=== PATIENT | male | born 1955 | race Caucasian/White ===

== ENCOUNTER 2024-03-21 10:49 | Emergency (ER) | payer OTHER, SELFPAY ==
[2024-03-21 11:22] VITALS: BP 163/85
--- NOTE | 2024-03-21 15:58 | ED.GENMED ---
History of Present Illness
General
Chief Complaint: Skin Problem
Time Seen by Provider: 03/21/24 15:39
Travel History
Have you had any contact with someone who has COVID-19?: No
Do you have any symptoms of coronavirus? Fever > 100 degrees, chills, cough, shortness of breath, sore throat, loss of taste or smell, muscle aches, or headache?: No
History of Present Illness
History of Present Illness:
68-year-old male presents for evaluation of an wound to the left posterior lower leg that was first discovered approximate 3 days ago. Has been using Neosporin without relief. Reports moderate increased pain to the area and redness that is new
over the past few days. Does have known venous stasis dermatitis. No fevers or chills
Past History
Past History
ED Past Medical History: CAD, HTN and Hypercholesterolemia
ED Past Surgical History: Cardiac and Tonsilectomy
Social History
Tobacco: Former smoker
Alcohol: None
Personal: Other
Living: with family
Family History
Family History: Unable to obtain
Review of Systems
Review of Systems
Allergies reviewed?: Yes
All Other Systems: ROS reviewed and negative except as documented in HPI and ROS
Phy Exam
Physical Exam
Physical Exam:
GEN: Well appearing, NAD, WDWN
HEENT: Oral mucosa moist, no scleral icterus
Cardiac: Regular rate
Lung: No respiratory distress, no tachypnea
MSK: No gross deformity or injuries, venous stasis dermatitis bilaterally
Skin: Good color, no pallor or jaundice, no rashes. 1.5 cm superficial abrasion with necrotic overlying tissue and copious debris, there is a 0.5 cm wound above this of a similar quality. Mild circumferential erythema and tenderness
Neuro: AO x3, moves all extremities freely
Psych: Calm, cooperative
Course
Vital Signs
Initial and Last Documented VS:
Initial Vital Signs
Temp Pulse Resp BP Pulse Ox
98.1 F 75 18 163/85 97
03/21/24 11:22 03/21/24 11:22 03/21/24 11:22 03/21/24 11:22 03/21/24 11:22
Last Documented Vital Signs
Temp Pulse Resp BP Pulse Ox
98.2 F 72 16 146/78 96
03/21/24 16:15 03/21/24 16:15 03/21/24 16:15 03/21/24 16:15 03/21/24 16:15
MDM/Problems Addressed
MDM/Problems Addressed:
Patient with a superficial wound, quite contaminated with dog hair and other debris. Wound was irrigated and the superficial necrotic tissue was debrided. Minimal erythema surrounding the wound, given the patient's poor hygiene will cover with
prophylactic antibiotics, discussed home wound care and will recommend outpatient wound care specialty follow-up
*Critical Care Note
Total Time (30-74mins, 75-104mins- exclusive of procedures): Not Applicable
ED Attending Note
-
Portions of this chart may have been created with voice recognition software.� Occasional wrong word or��sound alike� substitutions may have occurred due to the inherent limitations of voice recognition software.
Discharge Plan
Departure
Patient Disposition: Home (Routine Discharge)
Date of Disposition: 03/21/24
Time of Disposition: 16:02
Patient with high blood pressure during this ER visit?: Yes
Discharge Problem:
Leg wound, left
Instructions: Wound Care (DC)
Prescriptions:
New
cephalexin 500 mg capsule
500 mg PO Q8H 5 Days Qty: 15 0RF
No Action
tramadol 50 MG tablet
50 mg PO DAILY
losartan 25 MG tablet
25 mg PO DAILY
Eliquis 5 MG tablet
5 mg PO BID
atorvastatin 80 MG tablet
80 mg PO DAILY
metoprolol succinate 25 MG tablet extended release 24 hr
25 mg PO BID
Amiodarone Hcl 200 MG Tablet
200 mg PO DAILY
furosemide 40 MG tablet
40 mg PO DAILY
Referrals:
Ike Ulrich MD [Active] - Call in 1-3 days for appt
Activity Restrictions/Additional Instructions:
Clean wound each day with soap and water
After cleaning, apply the vaseline bandages I have provided you. Leave these on for 1 day each. After you run out of bandages, switch to regular bandaids
KEEP THE WOUND CLEAN
Take the antibiotics for 5 days
Follow up in the wound care clinic as listed
Interventions
Interventions:
*Risk Screen - Suicide Last Done: 03/21/24 11:22
*Neglect/Abuse Screening Last Done: 03/21/24 11:22
*ED COVID-19 Vaccine History Last Done: 03/21/24 11:22
*Nursing Disposition Last Done: 03/21/24 16:15
ED-Skin Assessment Last Done: 03/21/24 16:14
Discharge Date and Time
Discharge Date/Time: 03/21/24 16:15
Print Language: GEORGIAN
[2024-03-21 16:15] VITALS: BP 146/78
== END 2024-03-21 16:15 | disposition home or self-care (01) ==
LOC: EMR 10:49
PROVIDERS: EMERGENCY PHYSICIAN Emergency Medicine
DX: S81.802A Unspecified open wound, left lower leg, initial encounter (principal); X58.XXXA Exposure to other specified factors, initial encounter; I25.10 Atherosclerotic heart disease of native coronary artery without angina pectoris; I10 Essential (primary) hypertension; E78.00 Pure hypercholesterolemia, unspecified; I87.2 Venous insufficiency (chronic) (peripheral); Z87.891 Personal history of nicotine dependence; Z79.01 Long term (current) use of anticoagulants
CPT/HCPCS: 99283; 97597

== ENCOUNTER → 2024-05-21 12:52 | Outpatient (REF) | payer OTHER, SELFPAY ==
--- NOTE | 2024-05-21 13:35 | CARDSERVLU ---
Echocardiogram with Lumason completed after protocol screening completed. Allergies verified.
Patent IV site: ___RT AC__
IV site flushed with 0.9% NaCl pre and post administration.
Diluted bolus method utilized to enhance visualization of ventricular peraza.
Total volume given: __4.5__ mL
Patient tolerated all procedures well without complications.
# 22 milagros placed Rt AC. Lumason given. INT d/c'd. dsg applied and pressure held. No bleeding noted.
== END ==
LOC: RCS 12:52
PROVIDERS: ATTENDING PHYSICIAN Internal Medicine Interventional Cardiology; FAMILY PHYSICIAN Nurse Practitioner
DX: I25.5 Ischemic cardiomyopathy (principal)
CPT/HCPCS: 93306; Q9950

== ENCOUNTER 2024-10-12 13:59 | Inpatient (IN) | payer OTHER, SELFPAY ==
[2024-10-12] VITALS (13 sets, daily range): BP systolic 120–157; BP diastolic 60–76; PULSE 84; BMI 43.0; BMI 47.6
--- NOTE | 2024-10-12 08:48 | ED.GENMED ---
History of Present Illness
General
Chief Complaint: Breathing Problem
Source: patient
Exam Limitations: none
Time Seen by Provider: 10/12/24 08:48
History of Present Illness
History of Present Illness:
68-year-old male started with URI symptoms, wheezing 2 to 3 days ago. Shortness of breath became much worse this morning. Some cough. No pleuritic pain. No chest pain. Symptoms are moderate in nature.
Past History
Past History
ED Past Medical History: Arrthythmia, CAD, HTN and Hypercholesterolemia
ED Past Surgical History: Cardiac and Tonsilectomy
Social History
Tobacco: Former smoker
Alcohol: None
Personal: Other
Living: with family
Family History
Family History: Unable to obtain
Review of Systems
Review of Systems
All Other Systems: Not applicable
Constitutional: Denies chills
Respiratory: Reports cough; Denies hemoptysis
Cardiac: Denies chest pain or syncope
Phy Exam
Physical Exam
Physical Exam:
GENERAL: Alert and oriented. Mild tachypnea at rest
EYE: Orbits normal.
NECK: Supple, no significant adenopathy.
ENT: Pharynx without erythema
CARDIAC: Regular rate and rhythm without any obvious murmurs.
LUNGS: Mild tachypnea. Coarse cough at times. Expiratory wheezing and rhonchi diffusely
ABDOMEN: Soft, without focal tenderness or distention. Elevated BMI
NEUROLOGICAL: Alert and oriented , grossly non-focal
SKIN: Warm and dry, no rash or lesion, no discoloration, skin intact.
MUSCULOSKELETAL: No edema,no deformity.Good color
PSYCH: Normal and appropriate interaction.
Scores
Heart Failure Risk
Heart Failure Risk Score: Yes
History of Stroke or TIA: No
History of intubation for respiratory distress: No
Heart rate on ED arrival >/= 110: Yes
SaO2 <90% on arrival on room air: Yes
HR >/=110 during 3min walk test (or too ill to perform test): Yes
ECG has acute ischemic changes: No
Urea >/=12mmol/L (BUN 33.6mg/dL): No
Serum CO2>/=35mmol/L: No
Troponin I or T elevated to [place] Level (0.4mg/dL): No
NT-proBNP >/=5,000ng/L (5,000pg/ml): No
HF Risk Score: 3
Admission Status: HIGH RISK 15.9% Consider SNF treatment or admission to hospital
Course
Orders/Labs/Results
Orders:
Orders
10/12/24 08:44
EKG [Electrocardiogram (*1)] Urgent
Reason for Study: Shortness of Breath
EKG- Treatment ONCE
10/12/24 08:52
COVID-19 Antigen Urgent
Source: Nasal Swab
Influenza A+B Rapid Molecular Urgent
MARISA Source: Nasal Swab
Specimen Description:
10/12/24 08:54
Cardiac Monitoring- Treatment ONCE
IV Insert/Care/Rem.- Treatment PRN
Dexamethasone Sod Phosphate [Decadron] 8 mg IV NOW STA
Ipratropium/Albuterol Sulfate [Duoneb] 3 ml INH R NOW STA
CR Chest Portable - 1 View Urgent
Comment:
Reason For Exam: sob/hypoxia
Reason Study Needs to be Portable: Patient Unstable
O2 Therapy [RESP] Stat
Titrate/Wean O2 to maintain O2 sat greater than (%): 95
Pulse Ox/cont/shift [RESP] Stat
Quantity: 1
10/12/24 08:59
Basic Metabolic Panel Urgent
Complete Blood Count/With Diff Urgent
Pro-BNP [NT-proBNP] Urgent
Troponin I Urgent
10/12/24 10:42
Furosemide [Lasix] 40 mg IV NOW STA
10/12/24 13:34
Admit/Transfer Patient As Directed
Co-Sign Provider:
Level of Care: Inpatient admission
Assign to:: Telemetry
Physician / Group: Amanda/hospitalist
Diagnosis: SOB
Reason for Telemetry: Arrhythmia
Date to Stop Telemetry: 10/15/24
Time to Stop Telemetry: 11:00
Reason for Hospitalization: SOB
Expected length of stay greater than two midnights?: Yes
ELOS- Estimated Length of Stay in days: 4
I certify the patient meets the requirements for IP care: Yes
PRN Pain Medication Management As Directed
May give lesser potent ordered pain med per pt: Yes
preference::
Protocol:: Medication orders for pain may be administered in a
manner that supports deferring to patient preference
when the pt is:
- Requesting an ordered lesser potent pain medication.
Least to most potent pain medications are defined
as: acetaminophen < NSAID < tramadol < opioids
(morphine, oxycodone, hydromorphone).
- Requesting a lesser dose of the same medication IF
ORDERED.
- Requesting a less intrusive route of administration
if both routes are prescribed by the provider (PO <
IV).
10/12/24 13:36
Code Status As Directed
Resuscitation Status: Full Code
10/12/24 13:45
Sterile Water [Sterile Water For Injection] 20 ml IV Q24H
10/12/24 13:51
Blood Culture Q30M
MARISA Source: Blood/Venous
Specimen Description:
10/12/24 13:52
Procalcitonin Routine
PCT Algorithmm Indication: Respiratory
10/12/24 14:00
CefTRIAXone [Rocephin] 2,000 mg IV Q24H
Doxycycline [Vibramycin] 100 mg PO Q12
10/12/24 14:09
Blood Culture Q30M
MARISA Source: Blood/Venous
Specimen Description:
10/15/24 11:00
DC Protocol for Telemetry ONCE
Abnormal Lab Results
10/12/24
08:59
RBC 4.57 L 10^6/uL
(4.70-6.10)
MCV 96.9 H fL
(80.0-94.0)
MCH 32.2 H pg
(27.0-31.0)
RDW 14.9 H %
(11.5-14.5)
Plt Count 129 L 10^3/uL
(130-400)
MPV 10.8 H fL
(7.4-10.4)
Absolute Lymphs (auto) 0.7 L 10^3/uL
(1.2-3.4)
Neutrophils % 81.5 H %
(42.2-75.2)
Lymphocytes % 10.4 L %
(20.5-51.1)
Carbon Dioxide 31 H mmol/L
(22-30)
BUN 23 H mg/dl
(9-20)
Glucose 172 H mg/dl
(70-99)
10/12/24 08:59
10/12/24 08:59
Vital Signs
Initial and Last Documented VS:
Initial Vital Signs
Pulse Ox
88
10/12/24 08:43
Last Documented Vital Signs
Temp Pulse Resp BP Pulse Ox
100.5 F H 69 22 122/62 96
10/12/24 08:48 10/12/24 11:15 10/12/24 10:00 10/12/24 14:00 10/12/24 14:30
MDM/Problems Addressed
Differential Diagnosis Includes:
With history low-grade fever wheezing rhonchi cough more suspicious of a respiratory issue. Pulse ox 88%. Did not respond to nebulizer via the medics but will try 1 more nebulizer. Steroids. Also will do a cardiac evaluation with CHF history.
Previous echo shows ischemic cardiomyopathy at 40 to 45%. Doubt primary cardiac issue but warrants workup.
*Pulse Oximetry
Patient hypoxic: yes
*EKG
Interpreted by ED Provider?: Yes
Interpretation: abnormal
Comparison EKG: changes noted
Heart Rate: 74
Rate: normal
Rhythm: sinus
Volcano: normal axis
Interval: normal interval
QRS Pattern: low voltage and poor R-wave progression
Ischemia: non-specific ST changes
*Critical Care Note
Total Time (30-74mins, 75-104mins- exclusive of procedures): Not Applicable
Data Reviewed
Review of Other/Old Records Reveals: Labs, Records, Radiology Studies and Testing
ED Attending Note
-
Portions of this chart may have been created with voice recognition software.� Occasional wrong word or��sound alike� substitutions may have occurred due to the inherent limitations of voice recognition software.
Discharge Plan
Departure
Patient Disposition: Admit
Date of Disposition: 10/12/24
Time of Disposition: 10:42
Presentation/result/management discussed w/ accepting MD/DO: Hospitalist
Discharge Problem:
Hypoxia/respiratory distress, Bronchitis/possible CHF
Interventions
Interventions:
*Risk Screen - Suicide Last Done: 10/12/24 08:48
*General Assessment Last Done: 10/12/24 08:48
*Neglect/Abuse Screening Last Done: 10/12/24 08:48
*ED COVID-19 Vaccine History Last Done: 10/12/24 08:47
ED- Cardiac Assessment Last Done: 10/12/24 08:54
ED- Pulmonary Assessment Last Done: 10/12/24 08:54
[2024-10-12] MEDS: DUONEB 3 ML INH ×4 (09:02→22:25)
[2024-10-12] MEDS: DECADRON 8 MG IV (09:02)
[2024-10-12 09:27] LABS: % Basophils 0.3 % (0-2); % Immature Granulocytes 0.2 % (0-0.5); % Lymphocytes 10.4 % (20.5-51.1); % Monocytes 7.6 % (1.7-9.3); % Neutrophils 81.5 % (42.2-75.2); Absolute Lymphocytes 0.7 10^3/uL (1.2-3.4); Absolute Monocytes 0.5 10^3/uL (0.1-0.6); Absolute Neutrophils 5.3 10^3/uL (1.4-6.5); Hematocrit 44.3 % (39.0-52.0); Hemoglobin 14.7 g/dL (13.0-18.0); Mean Corp Hgb Conc. 33.2 g/dL (33.0-37.0); Mean Corpuscular Hgb 32.2 pg (27.0-31.0); Mean Corpuscular Volume 96.9 fL (80.0-94.0); Mean Platelet Volume 10.8 fL (7.4-10.4); Nucleated Red Blood Cells % 0 % (-); Platelet Count 129 10^3/uL (130-400); Red Blood Cell Count 4.57 10^6/uL (4.70-6.10); Red Cell Dist. Width 14.9 % (11.5-14.5); White Blood Cell Count 6.5 10^3/uL (4.8-10.8)
[2024-10-12 09:27] LABS: COVID-19 Antigen Negative (Negative)
[2024-10-12 09:36] LABS: Blood Urea Nitrogen 23 mg/dl (9-20); Calcium 8.8 mg/dl (8.4-10.2); Carbon Dioxide 31 mmol/L (22-30); Chloride 99 mmol/L (98-107); Estimated Creatinine Clearance 83 ml/min; Glucose 172 mg/dl (70-99); Potassium 4.2 mmol/L (3.5-5.1); Sodium 137 mmol/L (135-145); eGFR > 60.00
[2024-10-12 09:42] LABS: Troponin I 0.013 ng/ml
[2024-10-12 10:11] LABS: NT-proBNP 775 pg/ml
[2024-10-12] MEDS: LASIX 40 MG IV ×2 (11:00→17:35)
--- NOTE | 2024-10-12 13:20 | HPS.HSE ---
Family Physician
-
Family Physician: NITHYA BRADSHAW,DO
Chief Complaint
-
SOB, KHALIL
History of Present Illness
HPI: 68-year-old male with PMH CAD s/p PCI x2, HTN, HLD, systolic and diastolic CHF, LEODAN on CPAP, morbid obesity; p/w SOB, KHLAIL, mild cough and wheezing for 1-2 days. Symptoms worse with exertion.
He denies to chest pain or other symptoms.
In the ED, fever noted at 38.1 deg C. Placed on 4L NC in ED for hypoxia. Admit for respiratory distress.
Medical History
Past Medical History
Past Medical History: Reports Other
Additional Past Medical History:
CAD s/p PCI x2
HTN
HLD
systolic and diastolic CHF
LEODAN on CPAP
morbid obesity
Past Surgical History: Reports Other
Additional Past Surgical History:
PCI x2
L knee replacement
L hip replacement
Social History
Alcohol: None
Drug: None
Personal: Partner
Family History
Family History: Not pertinent
Allergies / Home Medications
Allergies reflects when Allergies were last updated in [facility].
Home Medications with original date entered in [facility]
Allergy/Medication List:
Allergies
Allergy/AdvReac Type Severity Reaction Status Date / Time
No Known Allergies Allergy Verified 03/21/24 11:22
Home Medications
apixaban 5 mg tablet (Eliquis) 5 mg PO BID Blood clot prevention/tx 09/29/21
atorvastatin 80 mg tablet 80 mg PO QPM High cholesterol 09/29/21
losartan 25 mg tablet 25 mg PO DAILY Blood pressure 09/29/21
metoprolol succinate 25 mg tablet,extended release 24 hr 25 mg PO BID Heart disease/condition 01/28/22
amiodarone 200 mg tablet 200 mg PO DAILY Heart disease/condition ##0 02/26/22
furosemide 40 mg tablet 40 mg PO MOWEFR@0800,1700 Fluid retention/Swelling 02/26/22
acetaminophen 325 mg tablet (Tylenol) 650 mg PO Q4HPRN PRN mild pain 10/12/24
albuterol sulfate 90 mcg/actuation aerosol inhaler 2 puff inhalation R Q6HPRN PRN sob 10/12/24
aspirin 81 mg tablet,delayed release 81 mg PO DAILY 10/12/24
furosemide 40 mg tablet (Lasix) 40 mg PO SUTUTHSA@0800 10/12/24
spironolactone 25 mg tablet 12.5 mg PO DAILY 10/12/24
Review of Systems
-
Respiratory: Reports See HPI, Cough and Trouble Breathing
Physical Exam
Vital Signs
Vital Signs
Temp Pulse Resp BP Pulse Ox
38.1 C H 76 18 120/64 99
10/12/24 08:48 10/12/24 09:15 10/12/24 09:00 10/12/24 09:00 10/12/24 09:15
Physical Exam
General: Well Developed, Well Nourished, Comfortable, Conversant (speak in full sentences ), Respiratory Distress and Morbidly Obese
HEENT: NormoCephalic, Moist mucous membranes, Atraumatic and Oxygen (4L NC)
Respiratory: Clear and Non Labored Respirations; No Accessory Resp Muscle Use
Cardiac: S1/S2 and Regular Rhythm; No Murmur or Rub
GI: Soft, Non Tender, Non Distended and Normal Bowel Sounds; No Organomegaly
Rectal: Deferred by Provider
Musculoskeletal: No Clubbing, No Cyanosis, Edema, Left Lower Extremity (mild) and Edema, Right Lower Extremity (mild)
Skin: No Rash
Neuro: Awake and Alert
Psych: Calm and Intact Judgment/Insight
Laboratory Results
-
10/12/24 08:59
10/12/24 08:59
Laboratory Results
Troponin I 0.013 ng/ml 10/12/24 08:59
Data Reviewed
-
Diagnostic Radiology: Image Personally Visualized and interpreted and Report Reviewed by me
Lab Data: Labs Reviewed by me
Impression/Plan
-
HPI: 68-year-old male with PMH CAD s/p PCI x2, HTN, HLD, systolic and diastolic CHF, LEODAN on CPAP, morbid obesity; p/w SOB, KHALIL, mild cough and wheezing for 1-2 days. Symptoms worse with exertion.
He denies to chest pain or other symptoms.
In the ED, fever noted at 38.1 deg C. Placed on 4L NC in ED for hypoxia. Admit for respiratory distress.
A/P:
# Acute hypoxic respiratory insufficiency
Pt placed on 4L NC in ED, cont O2 support and wean as tolerated. Pt not on home O2.
# Likely sepsis (fever and hypoxia) POA 2/2 CAP vs bronchitis
CXR noted mild pulmonary edema. Obscuration of left hemidiaphragm, which may represent left lower lobe airspace disease and/or small left pleural effusion.
Check blood Cx, Procal, sputum Cx
start ceftriaxone/doxycycline
Duonebs
# mild acute on chronic systolic and diastolic CHF likely precipitated by CAP vs bronchitis
# HTN
CXR noted mild pulmonary edema. Clinically with mild pedal edema.
Echo from 05/21/24: EF 40-45%, Stage I diastolic dysfunction. When compared to prior study on 11/09/2022, there is no significant change.
IV lasix 40 BID
fluid restrict
cont BOX BRANDER Toprol, Losartan, Aldactone with holding parameters
# CAD s/p 2 PCI
# Paroxysmal Atrial fibrillation
Cont BOX BRANDER Toprol, amiodarone
Cont BOX BRANDER Eliquis
# HLD
Lipitor
# Morbid obesity, BMI 43
# LEODAN on CPAP
cont own CPAP (if can bring in)
DVT ppx: BOX BRANDER Eliquis
FC
[2024-10-12] MEDS: VIBRAMYCIN 100 MG PO ×2 (14:10→21:07)
[2024-10-12] MEDS: STERILE WATER FOR INJECTION 20 ML IV (14:10)
[2024-10-12] MEDS: ROCEPHIN 2000 MG IV (14:10)
[2024-10-12 14:50] LABS: Procalcitonin < 0.05 ng/ml (0.0-0.25)
[2024-10-12] MEDS: LIPITOR 80 MG PO (17:35)
[2024-10-12] MEDS: ELIQUIS 5 MG PO (21:07)
[2024-10-12] MEDS: TOPROL XL 25 MG PO (21:07)
[2024-10-13] VITALS (8 sets, daily range): BP systolic 114–159; BP diastolic 53–75; PULSE 57–73; O2SAT 97
[2024-10-13 07:20] LABS: Blood Urea Nitrogen 34 mg/dl (9-20); Calcium 8.7 mg/dl (8.4-10.2); Carbon Dioxide 30 mmol/L (22-30); Chloride 95 mmol/L (98-107); Estimated Creatinine Clearance 84 ml/min; Glucose 176 mg/dl (70-99); Potassium 4.4 mmol/L (3.5-5.1); Sodium 136 mmol/L (135-145); eGFR > 60.00
[2024-10-13] MEDS: DUONEB 3 ML INH ×4 (07:40→19:40)
[2024-10-13] MEDS: LASIX 40 MG IV ×2 (08:26→16:36)
[2024-10-13] MEDS: ELIQUIS 5 MG PO ×2 (08:27→21:11)
[2024-10-13] MEDS: PACERONE 200 MG PO (08:28)
[2024-10-13] MEDS: VIBRAMYCIN 100 MG PO ×2 (08:28→21:11)
[2024-10-13] MEDS: ALDACTONE 12.5 MG PO (08:28)
[2024-10-13] MEDS: ASPIR LOW (ENTERIC COATED) 81 MG PO (08:28)
[2024-10-13] MEDS: COZAAR 25 MG PO (08:29)
[2024-10-13] MEDS: TOPROL XL 25 MG PO ×2 (08:29→21:12)
--- NOTE | 2024-10-13 09:35 | W.PN.HOSP.TC ---
Today's Communication/Plan
-
see A/P
Assessment / Plan
Assessment / Plan
HPI: 68-year-old male with PMH CAD s/p PCI x2, HTN, HLD, systolic and diastolic CHF, LEODAN on CPAP, morbid obesity; p/w SOB, KHALIL, mild cough and wheezing for 1-2 days. Symptoms worse with exertion.
He denies to chest pain or other symptoms.
In the ED, fever noted at 38.1 deg C. Placed on 4L NC in ED for hypoxia. Admit for respiratory distress.
A/P:
# Acute hypoxic respiratory insufficiency
Pt placed on 4L NC in ED, weaned to 3L NC,
cont O2 support and wean as tolerated. Pt not on home O2.
# Likely sepsis (fever and hypoxia) POA 2/2 severe bronchitis
CXR noted mild pulmonary edema. Obscuration of left hemidiaphragm, which may represent left lower lobe airspace disease and/or small left pleural effusion.
Noted Procal negative
Follow blood Cx, sputum Cx if able to collect
Cont empiric ceftriaxone/doxycycline x5 days
Duonebs ATC and PRN
# mild acute on chronic systolic and diastolic CHF
# HTN
CXR noted mild pulmonary edema. Clinically with mild pedal edema.
Echo from 05/21/24: EF 40-45%, Stage I diastolic dysfunction. When compared to prior study on 11/09/2022, there is no significant change.
IV lasix 40 BID
daily weight
fluid restrict
cont ELECTRIC SWITCH TESTER Toprol, Losartan, Aldactone with holding parameters
# CAD s/p 2 PCI
# Paroxysmal Atrial fibrillation
Cont ELECTRIC SWITCH TESTER Toprol, amiodarone
Cont ELECTRIC SWITCH TESTER Eliquis
# HLD
Lipitor
# Morbid obesity, BMI 43
# LEODAN on CPAP
cont own CPAP (if can bring in)
DVT ppx: ELECTRIC SWITCH TESTER Eliquis
FC
DW RN
Anticipated Discharge: 24 - 48 hours
Subjective/Interval History
-
Date of Service: October 13, 2024
Objective Data
-
Labs:
Laboratory Results
10/13/24
06:48
WBC Pending
Hgb Pending
Hct Pending
Plt Count Pending
Sodium 136
Potassium 4.4
Chloride 95 L
Carbon Dioxide 30
BUN 34 H
Creatinine 1.3
Glucose 176 H
Calcium 8.7
Vital Signs:
Vital Signs
Temp Pulse Resp BP Pulse Ox
36.3 C 71 18 159/74 100
10/13/24 07:55 10/13/24 08:28 10/13/24 07:55 10/13/24 08:26 10/13/24 07:55
I&O
10/12/24 10/13/24 10/14/24
06:59 06:59 06:59
Intake Total 240 / 240
Output Total 3300 / 3300
Balance -3060 / -3060
Review of Systems
-
All other systems: Reviewed and negative
Physical Exam
-
General: Well Developed, Well Nourished, Comfortable, Respiratory Distress (mild), Conversant and Morbidly Obese
HEENT: Normocephalic, Atraumatic, Nose Appears Normal, Ears Appear Normal and Oxygen (3L NC)
Respiratory: Clear to Auscultation and Non Labored Respirations; Negative Accessory Resp Muscle Use
Cardiac: Regular Rhythm and S1/S2
GI: Soft, Nontender, Nondistended and Normal Bowel Sounds
Skin: Warm and Dry
Neuro: Awake, Alert, Oriented, AO x 3 and Nonfocal/Grossly Intact
Psych: Calm and Intact Judgement/Insight
Data Reviewed
-
Diagnostic Radiology: Report Reviewed by me
Labs: Labs Reviewed by me
[2024-10-13 09:43] LABS: % Basophils 0.1 % (0-2); % Immature Granulocytes 0.7 % (0-0.5); % Lymphocytes 7.7 % (20.5-51.1); % Monocytes 5.4 % (1.7-9.3); % Neutrophils 86.1 % (42.2-75.2); Absolute Immature Granulocytes 0.1 10^3/uL (0-0.05); Absolute Lymphocytes 0.7 10^3/uL (1.2-3.4); Absolute Monocytes 0.5 10^3/uL (0.1-0.6); Absolute Neutrophils 7.6 10^3/uL (1.4-6.5); Hematocrit 41.9 % (39.0-52.0); Hemoglobin 14.1 g/dL (13.0-18.0); Mean Corp Hgb Conc. 33.7 g/dL (33.0-37.0); Mean Corpuscular Hgb 32.3 pg (27.0-31.0); Mean Corpuscular Volume 96.1 fL (80.0-94.0); Nucleated Red Blood Cells % 0 % (-); Platelet Count 158 10^3/uL (130-400); Red Blood Cell Count 4.36 10^6/uL (4.70-6.10); Red Cell Dist. Width 14.9 % (11.5-14.5); White Blood Cell Count 8.8 10^3/uL (4.8-10.8)
--- NOTE | 2024-10-13 13:12 | CM ---
CM following re: discharge planning.
Reviewed pt's chart, met with pt.
Pt is a 68 year old male, admitted with primary dx of SOB. Pt currently requires 4L NC, Bi-pap treatment at . Pt has no home O2.
Pt reports he lives with spouse 2SH, 1 step to enter, has a daughter and she is not involved i n pt's life. pt described himself as independent in all areas [employer], drives.
PCP: [facility].
Pharmacy: [facility]
D/c plan: home with anticipated no needs. Spouse to transport at discharge.
CM will follow with discharge plan updates as hospitalization progresses
[2024-10-13] MEDS: ROCEPHIN 2000 MG IV (13:17)
[2024-10-13] MEDS: STERILE WATER FOR INJECTION 20 ML IV (13:17)
[2024-10-13] MEDS: TESSALON PERLES 200 MG PO ×2 (15:31→21:12)
[2024-10-13] MEDS: LIPITOR 80 MG PO (16:35)
[2024-10-14 03:22] VITALS: BP 129/64
[2024-10-14 06:00] VITALS: BMI 46.8
[2024-10-14 07:18] LABS: % Basophils 0.3 % (0-2); % Immature Granulocytes 0.3 % (0-0.5); % Lymphocytes 18.2 % (20.5-51.1); % Monocytes 7.8 % (1.7-9.3); % Neutrophils 73.4 % (42.2-75.2); Absolute Lymphocytes 1.4 10^3/uL (1.2-3.4); Absolute Monocytes 0.6 10^3/uL (0.1-0.6); Absolute Neutrophils 5.7 10^3/uL (1.4-6.5); Hematocrit 41.4 % (39.0-52.0); Hemoglobin 13.8 g/dL (13.0-18.0); Mean Corp Hgb Conc. 33.3 g/dL (33.0-37.0); Mean Corpuscular Hgb 32.2 pg (27.0-31.0); Mean Corpuscular Volume 96.5 fL (80.0-94.0); Nucleated Red Blood Cells % 0 % (-); Platelet Count 157 10^3/uL (130-400); Red Blood Cell Count 4.29 10^6/uL (4.70-6.10); Red Cell Dist. Width 15.5 % (11.5-14.5); White Blood Cell Count 7.7 10^3/uL (4.8-10.8)
[2024-10-14] MEDS: DUONEB 3 ML INH ×4 (07:34→19:25)
[2024-10-14 07:44] VITALS: BP 128/65
[2024-10-14 07:49] LABS: Blood Urea Nitrogen 49 mg/dl (9-20); Calcium 8.5 mg/dl (8.4-10.2); Carbon Dioxide 34 mmol/L (22-30); Chloride 94 mmol/L (98-107); Estimated Creatinine Clearance 67 ml/min; Glucose 124 mg/dl (70-99); Potassium 4.2 mmol/L (3.5-5.1); Sodium 135 mmol/L (135-145); eGFR 46.93
[2024-10-14 07:59] LABS: Magnesium 2.1 mg/dl (1.6-2.3)
[2024-10-14] MEDS: ELIQUIS 5 MG PO ×2 (09:26→21:09)
[2024-10-14] MEDS: COZAAR 25 MG PO (09:26)
[2024-10-14] MEDS: VIBRAMYCIN 100 MG PO ×2 (09:26→21:11)
[2024-10-14] MEDS: PACERONE 200 MG PO (09:26)
[2024-10-14] MEDS: ALDACTONE 12.5 MG PO (09:26)
[2024-10-14] MEDS: ASPIR LOW (ENTERIC COATED) 81 MG PO (09:27)
[2024-10-14] MEDS: TOPROL XL 25 MG PO ×2 (09:27→21:09)
[2024-10-14] MEDS: LASIX 40 MG IV (09:27)
[2024-10-14] MEDS: TESSALON PERLES 200 MG PO ×2 (09:27→21:11)
--- NOTE | 2024-10-14 11:05 | W.PN.HOSP.TC ---
Addendum entered and electronically signed by Summer Patel MD 10/14/24 11:12:
Noted SCr today at 1.6 from 1.3, stopped lasix for now, monitor SCr and weight
Original Note:
Today's Communication/Plan
-
see A/P
Assessment / Plan
Assessment / Plan
HPI: 68-year-old male with PMH CAD s/p PCI x2, HTN, HLD, systolic and diastolic CHF, LEODAN on CPAP, morbid obesity; p/w SOB, KHALIL, mild cough and wheezing for 1-2 days. Symptoms worse with exertion.
He denies to chest pain or other symptoms.
In the ED, fever noted at 38.1 deg C. Placed on 4L NC in ED for hypoxia. Admit for respiratory distress.
A/P:
# Acute hypoxic respiratory insufficiency
Pt placed on 4L NC in ED, weaned to 2L NC, cont to wean as tolerated. Pt not on home O2.
# Likely sepsis (fever and hypoxia) POA 2/2 severe bronchitis
CXR noted mild pulmonary edema. Obscuration of left hemidiaphragm, which may represent left lower lobe airspace disease and/or small left pleural effusion.
Noted Procal negative
Follow blood Cx, sputum Cx if able to collect
Cont empiric ceftriaxone/doxycycline x5 days
Duonebs ATC and PRN
# mild acute on chronic systolic and diastolic CHF
# HTN
CXR noted mild pulmonary edema. Clinically with mild pedal edema.
Echo from 05/21/24: EF 40-45%, Stage I diastolic dysfunction. When compared to prior study on 11/09/2022, there is no significant change.
Cont IV lasix 40 BID
daily weight , fluid restrict
cont STRIP CUTTER Toprol, Losartan, Aldactone with holding parameters
# CAD s/p 2 PCI
# Paroxysmal Atrial fibrillation
Cont STRIP CUTTER Toprol, amiodarone
Cont STRIP CUTTER Eliquis
# HLD
Lipitor
# Morbid obesity, BMI 43
# LEODAN on CPAP
cont CPAP HS
DVT ppx: STRIP CUTTER Eliquis
FC
Anticipated Discharge: 24 - 48 hours
Subjective/Interval History
-
Date of Service: October 14, 2024
Objective Data
-
Labs:
Laboratory Results
10/14/24
06:31
WBC 7.7
Hgb 13.8
Hct 41.4
Plt Count 157
Sodium 135
Potassium 4.2
Chloride 94 L
Carbon Dioxide 34 H
BUN 49 H
Creatinine 1.6 H
Glucose 124 H
Calcium 8.5
Vital Signs:
Vital Signs
Temp Pulse Resp BP Pulse Ox
36.6 C 68 20 128/65 95
10/14/24 07:44 10/14/24 09:26 10/14/24 07:44 10/14/24 09:26 10/14/24 09:42
I&O
10/13/24 10/14/24 10/15/24
06:59 06:59 06:59
Intake Total 240 / 240 840 / 840
Output Total 3300 / 3300 1500 / 1500
Balance -3060 / -3060 -660 / -660
Review of Systems
-
All other systems: Reviewed and negative
Physical Exam
-
General: Well Developed, Well Nourished, Comfortable, Respiratory Distress (mild), Conversant and Morbidly Obese
HEENT: Normocephalic, Atraumatic, Nose Appears Normal, Ears Appear Normal and Oxygen (2L NC)
Respiratory: Clear to Auscultation and Non Labored Respirations; Negative Accessory Resp Muscle Use
Cardiac: Regular Rhythm and S1/S2
GI: Soft, Nontender, Nondistended and Normal Bowel Sounds
Skin: Warm and Dry
Neuro: Awake, Alert, Oriented, AO x 3 and Nonfocal/Grossly Intact
Psych: Calm and Intact Judgement/Insight
Data Reviewed
-
Diagnostic Radiology: Report Reviewed by me
Labs: Labs Reviewed by me
[2024-10-14 11:49] VITALS: BP 121/55
[2024-10-14 15:18] VITALS: BP 110/51
[2024-10-14] MEDS: ROCEPHIN 2000 MG IV (16:20)
[2024-10-14] MEDS: STERILE WATER FOR INJECTION 20 ML IV (16:21)
[2024-10-14] MEDS: LIPITOR 80 MG PO (17:54)
[2024-10-14 19:25] VITALS: BP 143/72
--- NOTE | 2024-10-14 19:32 | PTCARENOTE ---
Received patient this am AOX3. Pt ambulating in room independently. Tolerated diet well. Offered no complaints. Made patient comfortable. Cont to assess patient status.
[2024-10-14 23:31] VITALS: BP 135/75
[2024-10-15] VITALS (7 sets, daily range): BP systolic 126–158; BP diastolic 58–71; PULSE 63; BMI 46.5
[2024-10-15] MEDS: DUONEB 3 ML INH ×4 (07:38→19:29)
[2024-10-15] MEDS: OCEAN, SALINE MIST 1 SPRAYS NASAL (08:52)
[2024-10-15] MEDS: ALDACTONE 12.5 MG PO (08:53)
[2024-10-15] MEDS: VIBRAMYCIN 100 MG PO ×2 (08:53→20:14)
[2024-10-15] MEDS: TOPROL XL 25 MG PO ×2 (08:53→20:14)
[2024-10-15] MEDS: ASPIR LOW (ENTERIC COATED) 81 MG PO (08:53)
[2024-10-15] MEDS: PACERONE 200 MG PO (08:53)
[2024-10-15] MEDS: ELIQUIS 5 MG PO ×2 (08:53→20:14)
[2024-10-15] MEDS: TESSALON PERLES 200 MG PO ×2 (08:53→20:15)
[2024-10-15] MEDS: COZAAR 25 MG PO (08:53)
[2024-10-15 09:46] LABS: % Basophils 0.5 % (0-2); % Immature Granulocytes 0.5 % (0-0.5); % Lymphocytes 22.9 % (20.5-51.1); % Monocytes 7.1 % (1.7-9.3); Absolute Lymphocytes 1.5 10^3/uL (1.2-3.4); Absolute Monocytes 0.5 10^3/uL (0.1-0.6); Absolute Neutrophils 4.6 10^3/uL (1.4-6.5); Hematocrit 44.5 % (39.0-52.0); Hemoglobin 14.8 g/dL (13.0-18.0); Mean Corp Hgb Conc. 33.3 g/dL (33.0-37.0); Mean Corpuscular Hgb 32.1 pg (27.0-31.0); Mean Corpuscular Volume 96.5 fL (80.0-94.0); Nucleated Red Blood Cells % 0 % (-); Platelet Count 166 10^3/uL (130-400); Red Blood Cell Count 4.61 10^6/uL (4.70-6.10); Red Cell Dist. Width 15.3 % (11.5-14.5); White Blood Cell Count 6.6 10^3/uL (4.8-10.8)
[2024-10-15] MEDS: DECADRON 6 MG IV ×2 (11:34→23:00)
[2024-10-15 12:13] LABS: Blood Urea Nitrogen 50 mg/dl (9-20); Carbon Dioxide 30 mmol/L (22-30); Chloride 95 mmol/L (98-107); Estimated Creatinine Clearance 67 ml/min; Glucose 138 mg/dl (70-99); Potassium 4.5 mmol/L (3.5-5.1); Sodium 136 mmol/L (135-145); eGFR 46.93
--- NOTE | 2024-10-15 12:17 | W.PN.HOSP.TC ---
Today's Communication/Plan
-
IV steroids
dc diuretics
check urine studies
2 view CXR
Assessment / Plan
Assessment / Plan
HPI: 68-year-old male with PMH CAD s/p PCI x2, HTN, HLD, systolic and diastolic CHF, LEODAN on CPAP, morbid obesity; p/w SOB, KHALIL, mild cough and wheezing for 1-2 days. Symptoms worse with exertion.
He denies to chest pain or other symptoms.
In the ED, fever noted at 38.1 deg C. Placed on 4L NC in ED for hypoxia. Admit for respiratory distress.
A/P:
# Acute hypoxic respiratory insufficiency
Pt placed on 4L NC in ED, weaned to 2L NC, cont to wean as tolerated. Pt not on home O2.
will add IV steroids
Check 2 view cxr
# Likely sepsis (fever and hypoxia) POA 2/2 severe bronchitis
CXR noted mild pulmonary edema. Obscuration of left hemidiaphragm, which may represent left lower lobe airspace disease and/or small left pleural effusion.
Noted Procal negative
Follow blood Cx, sputum Cx if able to collect
Cont empiric ceftriaxone/doxycycline x5 days
Duonebs ATC and PRN
# mild acute on chronic systolic and diastolic CHF -low suspicous
# HTN
Echo from 05/21/24: EF 40-45%, Stage I diastolic dysfunction. When compared to prior study on 11/09/2022, there is no significant change.
lasix held
daily weight , fluid restrict
hold Losartan, Aldactone
#HECTOR on CKD stage2
hold lasix/losartan/aldactone
check urine
BUN elevated-?due to over diuresis
bladder scan protocol
# CAD s/p 2 PCI
# Paroxysmal Atrial fibrillation
Cont CONTRACTING ENGINEER Toprol, amiodarone
Cont CONTRACTING ENGINEER Eliquis
# HLD
Lipitor
# Morbid obesity, BMI 43
# LEODAN on CPAP
cont CPAP HS
DVT ppx: CONTRACTING ENGINEER Eliquis
FC
Anticipated Discharge: 24 - 48 hours
Subjective/Interval History
-
Date of Service: October 15, 2024
states remains with intermittent cough and sob
on oxygen
Objective Data
-
Labs:
Laboratory Results
10/15/24 10/15/24
08:54 11:36
WBC 6.6
Hgb 14.8
Hct 44.5
Plt Count 166
Sodium Cancelled 136
Potassium Cancelled 4.5
Chloride Cancelled 95 L
Carbon Dioxide Cancelled 30
BUN Cancelled 50 H
Creatinine Cancelled 1.6 H
Glucose Cancelled 138 H
Calcium Cancelled 9.0
Vital Signs:
Vital Signs
Temp Pulse Resp BP Pulse Ox
98.8 F 65 20 130/60 95
10/15/24 11:38 10/15/24 11:38 10/15/24 11:38 10/15/24 11:38 10/15/24 11:38
I&O
10/14/24 10/15/24 10/16/24
06:59 06:59 06:59
Intake Total 840 / 840 600 / 600
Output Total 1500 / 1500 500 / 500
Balance -660 / -660 100 / 100
Physical Exam
-
General: Well Developed, Well Nourished, Comfortable, Respiratory Distress (mild), Conversant and Morbidly Obese
HEENT: Normocephalic, Atraumatic, Nose Appears Normal, Ears Appear Normal and Oxygen (2L NC)
Respiratory: Wheezes (very mild exp ) and Non Labored Respirations; Negative Accessory Resp Muscle Use
Cardiac: Regular Rhythm and S1/S2
GI: Soft, Nontender, Nondistended and Normal Bowel Sounds
Skin: Warm and Dry
Neuro: Awake, Alert, Oriented, AO x 3 and Nonfocal/Grossly Intact
Psych: Calm and Intact Judgement/Insight
Data Reviewed
-
Total Time Spent with Patient (in minutes): 55
[2024-10-15] MEDS: ROCEPHIN 2000 MG IV (13:30)
[2024-10-15] MEDS: STERILE WATER FOR INJECTION 20 ML IV (13:31)
--- NOTE | 2024-10-15 15:05 | CM ---
CM reviewed chart, patient remains on O2- not on home O2. Patient remains on IV steroids. Per PT, no skilled need. CM will continue to follow for all discharge planning needs.
Plan; home no needs vs home with O2.
[2024-10-15 15:26] LABS: Urine Sodium 19 mmol/L (30-90)
[2024-10-15] MEDS: NSS 500 IV (16:16)
[2024-10-15] MEDS: LIPITOR 80 MG PO (17:16)
[2024-10-15] MEDS: TYLENOL 650 MG PO ×2 (18:06→22:58)
[2024-10-16] VITALS (8 sets, daily range): BP systolic 127–149; BP diastolic 56–74; PULSE 66–78; BMI 46.5
[2024-10-16] MEDS: DUONEB 3 ML INH ×4 (07:32→20:49)
[2024-10-16] MEDS: PACERONE 200 MG PO (08:30)
[2024-10-16] MEDS: TOPROL XL 25 MG PO ×2 (08:30→21:30)
[2024-10-16] MEDS: TESSALON PERLES 200 MG PO ×2 (08:30→21:29)
[2024-10-16] MEDS: VIBRAMYCIN 100 MG PO ×2 (08:30→21:30)
[2024-10-16] MEDS: ASPIR LOW (ENTERIC COATED) 81 MG PO (08:30)
[2024-10-16] MEDS: ELIQUIS 5 MG PO ×2 (08:31→21:30)
--- NOTE | 2024-10-16 11:42 | W.PN.HOSP.TC ---
Today's Communication/Plan
-
await cr
po steroid taper on dc
oob/ambulate and monitor
Assessment / Plan
Assessment / Plan
HPI: 68-year-old male with PMH CAD s/p PCI x2, HTN, HLD, systolic and diastolic CHF, LEODAN on CPAP, morbid obesity; p/w SOB, KHALIL, mild cough and wheezing for 1-2 days. Symptoms worse with exertion.
He denies to chest pain or other symptoms.
In the ED, fever noted at 38.1 deg C. Placed on 4L NC in ED for hypoxia. Admit for respiratory distress.
A/P:
# Acute hypoxic respiratory insufficiency
Pt placed on 4L NC in ED, weaned to 2L NC, cont to wean as tolerated. Pt not on home O2.
will add IV steroids transition to p.o. taper regimen on discharge
2 view x-ray with small left pleural effusion which is improved.
Now on room air
# Likely sepsis (fever and hypoxia) POA 2/2 severe bronchitis
CXR noted mild pulmonary edema. Obscuration of left hemidiaphragm, which may represent left lower lobe airspace disease and/or small left pleural effusion.
Noted Procal negative
Follow blood Cx remained negative, sputum Cx if able to collect unable to produce sputum
Cont empiric ceftriaxone/doxycycline x5 days
Duonebs ATC and PRN
# mild acute on chronic systolic and diastolic CHF -low suspicous
# HTN
Echo from 05/21/24: EF 40-45%, Stage I diastolic dysfunction. When compared to prior study on 11/09/2022, there is no significant change.
lasix held
daily weight , fluid restrict
hold Losartan, Aldactone
#HECTOR on CKD stage2
hold lasix/losartan/aldactone
Awaiting repeat CR
BUN elevated-?due to over diuresis. Fena with prerenal
bladder scan protocol
# CAD s/p 2 PCI
# Paroxysmal Atrial fibrillation
Cont MANAGER ASSURANCE Toprol, amiodarone
Cont MANAGER ASSURANCE Eliquis
# HLD
Lipitor
# Morbid obesity, BMI 43
# LEODAN on CPAP
cont CPAP HS
DVT ppx: MANAGER ASSURANCE Eliquis
FC
Anticipated Discharge: Within 24 hours
Subjective/Interval History
-
Date of Service: October 16, 2024
off oxygen
feeling crackles per patient when he breathes
able to speak in complete sentences
Tolerating diet
Using CPAP at bedtime
Afebrile overnight
Objective Data
-
Labs:
Laboratory Results
10/16/24
10:52
Sodium Pending
Potassium Pending
Chloride Pending
Carbon Dioxide Pending
BUN Pending
Creatinine Pending
Glucose Pending
Calcium Pending
Vital Signs:
Vital Signs
Temp Pulse Resp BP Pulse Ox
98.7 F 68 18 142/71 95
10/16/24 11:13 10/16/24 11:13 10/16/24 11:13 10/16/24 11:13 10/16/24 11:13
I&O
10/15/24 10/16/24 10/17/24
06:59 06:59 06:59
Intake Total 600 / 600 820 / 820
Output Total 500 / 500 450 / 450
Balance 100 / 100 370 / 370
Physical Exam
-
General: Well Developed, Well Nourished, Comfortable, Conversant and Morbidly Obese
HEENT: Normocephalic, Atraumatic, Nose Appears Normal and Ears Appear Normal
Respiratory: Clear to Auscultation and Non Labored Respirations; Negative Accessory Resp Muscle Use
Cardiac: Regular Rhythm and S1/S2
GI: Soft, Nontender, Nondistended and Normal Bowel Sounds
Skin: Warm and Dry
Neuro: Awake, Alert, Oriented, AO x 3 and Nonfocal/Grossly Intact
Psych: Calm and Intact Judgement/Insight
Data Reviewed
-
Total Time Spent with Patient (in minutes): 55
[2024-10-16 11:54] LABS: Blood Urea Nitrogen 44 mg/dl (9-20); Calcium 9.5 mg/dl (8.4-10.2); Carbon Dioxide 27 mmol/L (22-30); Chloride 96 mmol/L (98-107); Estimated Creatinine Clearance 89 ml/min; Glucose 180 mg/dl (70-99); Potassium 4.6 mmol/L (3.5-5.1); Sodium 136 mmol/L (135-145); eGFR > 60.00
[2024-10-16] MEDS: DECADRON 6 MG IV ×2 (12:50→23:35)
[2024-10-16] MEDS: STERILE WATER FOR INJECTION 20 ML IV (13:00)
[2024-10-16] MEDS: ROCEPHIN 2000 MG IV (13:00)
[2024-10-16] MEDS: LIPITOR 80 MG PO (17:15)
[2024-10-16] MEDS: OCEAN, SALINE MIST 1 SPRAYS NASAL (21:42)
[2024-10-17 00:05] VITALS: PULSE 57
[2024-10-17 03:36] VITALS: BP 140/80
[2024-10-17 06:00] VITALS: BMI 46.4
[2024-10-17] MEDS: DUONEB 3 ML INH ×2 (07:19→11:38)
[2024-10-17 07:25] LABS: Blood Urea Nitrogen 42 mg/dl (9-20); Carbon Dioxide 26 mmol/L (22-30); Chloride 98 mmol/L (98-107); Estimated Creatinine Clearance 89 ml/min; Glucose 168 mg/dl (70-99); Potassium 4.7 mmol/L (3.5-5.1); Sodium 135 mmol/L (135-145); eGFR > 60.00
[2024-10-17 07:50] VITALS: BP 145/75
[2024-10-17] MEDS: VIBRAMYCIN 100 MG PO (09:48)
[2024-10-17] MEDS: PACERONE 200 MG PO (09:48)
[2024-10-17] MEDS: TOPROL XL 25 MG PO (09:48)
[2024-10-17] MEDS: ASPIR LOW (ENTERIC COATED) 81 MG PO (09:48)
[2024-10-17] MEDS: TESSALON PERLES 200 MG PO (09:49)
[2024-10-17] MEDS: ELIQUIS 5 MG PO (09:49)
[2024-10-17] MEDS: OCEAN, SALINE MIST 1 SPRAYS NASAL (09:52)
[2024-10-17 11:35] VITALS: BP 165/88
--- NOTE | 2024-10-17 12:13 | W.PN.HOSP.TC ---
Today's Communication/Plan
-
po steroids taper
duoneb
OP pcp f/u
Assessment / Plan
Assessment / Plan
HPI: 68-year-old male with PMH CAD s/p PCI x2, HTN, HLD, systolic and diastolic CHF, LEODAN on CPAP, morbid obesity; p/w SOB, KHALIL, mild cough and wheezing for 1-2 days. Symptoms worse with exertion.
He denies to chest pain or other symptoms.
In the ED, fever noted at 38.1 deg C. Placed on 4L NC in ED for hypoxia. Admit for respiratory distress.
A/P:
# Acute hypoxic respiratory insufficiency
Pt placed on 4L NC in ED, weaned to 2L NC, cont to wean as tolerated. Pt not on home O2.
will add IV steroids transition to p.o. taper regimen on discharge
2 view x-ray with small left pleural effusion which is improved.
Now on room air
# Likely sepsis (fever and hypoxia) POA 2/2 severe bronchitis
CXR noted mild pulmonary edema. Obscuration of left hemidiaphragm, which may represent left lower lobe airspace disease and/or small left pleural effusion.
Noted Procal negative
Follow blood Cx remained negative, sputum Cx if able to collect unable to produce sputum
Completed course of antibiotics
Duonebs PRN
# mild acute on chronic systolic and diastolic CHF -low suspicious
# HTN
Echo from 05/21/24: EF 40-45%, Stage I diastolic dysfunction. When compared to prior study on 11/09/2022, there is no significant change.
lasix restarted
daily weight , fluid restrict
lost weight.
#HECTOR on CKD stage2
restarted lasix/losartan/aldactone
Awaiting repeat CR
BUN elevated-?due to over diuresis. Fena with prerenal
bladder scan protocol
resolved.
# CAD s/p 2 PCI
# Paroxysmal Atrial fibrillation
Cont SHINGLES ROOFER Toprol, amiodarone
Cont SHINGLES ROOFER Eliquis
# HLD
Lipitor
# Morbid obesity, BMI 43
# LEODAN on CPAP
cont CPAP HS
DVT ppx: SHINGLES ROOFER Eliquis
FC
.
More than 30 minutes spent in discharge including
Final examination of the patient
Summarizing hospital stay
Instructions for continuing care to all relevant caregivers
Preparation of discharge records, prescriptions, and referral forms
Total time spent (in minutes): 55
Anticipated Discharge: Today
Subjective/Interval History
-
Date of Service: October 17, 2024
on room air
intermittent cough dry. no phelgm production
Objective Data
-
Labs:
Laboratory Results
10/17/24
06:37
Sodium 135
Potassium 4.7
Chloride 98
Carbon Dioxide 26
BUN 42 H
Creatinine 1.2
Glucose 168 H
Calcium 9.0
Vital Signs:
Vital Signs
Temp Pulse Resp BP Pulse Ox
97.9 F 60 15 145/75 96
10/17/24 07:50 10/17/24 11:40 10/17/24 11:40 10/17/24 09:48 10/17/24 07:50
I&O
10/16/24 10/17/24 10/18/24
06:59 06:59 06:59
Intake Total 820 / 820 1200 / 1200
Output Total 450 / 450
Balance 370 / 370 1200 / 1200
Physical Exam
-
General: Well Developed, Well Nourished, Comfortable, Conversant and Morbidly Obese
HEENT: Normocephalic, Atraumatic, Nose Appears Normal and Ears Appear Normal
Respiratory: Rhonchi (mild ) and Non Labored Respirations; Negative Accessory Resp Muscle Use
Cardiac: Regular Rhythm and S1/S2
GI: Soft, Nontender, Nondistended and Normal Bowel Sounds
Skin: Warm and Dry
Neuro: Awake, Alert, Oriented, AO x 3 and Nonfocal/Grossly Intact
Psych: Calm and Intact Judgement/Insight
[2024-10-17 12:38] VITALS: BP 165/88
--- NOTE | 2024-10-17 12:45 | W.DCSUMMARY ---
Discharge Summary
Discharge Data
Date of Admission: 10/12/24
Date of Discharge: 10/17/24
-
Pending Results: No
Hospital Course
68-year-old male with PMH CAD s/p PCI x2, HTN, HLD, CHF, LEODAN on CPAP, morbid obesity; p/w SOB, KHALIL, mild cough and wheezing for 1-2 days. Symptoms worse with exertion. There was concern for sepsis secondary to bronchitis and patient was started on
IV ceftriaxone and doxycycline. Patient completed course of antibiotic during hospitalization. Patient required oxygenation upon admission. There was also concern for mild acute on chronic heart failure exacerbation and patient received IV Lasix.
Patient with significant bump in creatinine and IV Lasix were held. FENA with prerenal status post mild IV fluid resuscitation and Lasix was held. Patient creatinine stabilized and return to baseline status. Thus, Lasix, losartan, and Aldactone
was restarted. Patient was also started on IV steroids. Patient with significant improvement in symptomatology. Patient was weaned off oxygen to room air. Patient was ambulating in the romano and without any significant shortness of breath. IV
steroids were transitioned to p.o. steroids on discharge. Patient be given paper prescription for all his medication as patient requested. Patient be discharged home and verbalized understanding to follow-up with primary doctor.
Discharge Plan
-
Patient Disposition: Home with Home Care
Discharge Diagnosis/Procedures: Acute bronchitis and sepsis;
Mild acute on chronic heart failure
Acute kidney injury on chronic kidney disease
Acute hypoxic respiratory insufficiency
Condition: Fair
Diet: As tolerated, Low Fat, Low Cholesterol, Low Sodium and Restrict fluids to 48 oz
Activity: As tolerated
Driving Restrictions: As prior to admission
Referrals:
NITHYA BRADSHAW DO [Family Provider] - in less than 1 week
Prescriptions:
New
prednisone 10 mg Tablet
See Rx Instructions .ROUTE .COMPLEX Qty: 30 0RF
Rx Instructions:
Take By Mouth:
40 mg daily x3 days, 30 mg daily x3 days,
20 mg daily x3 days, 10 mg daily x3 days.
benzonatate 100 mg Capsule
200 mg PO BID Qty: 20 0RF
ipratropium-albuterol 0.5 mg-3 mg(2.5 mg base)/3 mL solution for nebulization
3 ml inhalation Q4H PRN (Reason: wheezing) Qty: 90 0RF
Continued
losartan 25 MG tablet
25 mg PO DAILY
Eliquis 5 MG tablet
5 mg PO BID
atorvastatin 80 MG tablet
80 mg PO QPM
metoprolol succinate 25 MG tablet extended release 24 hr
25 mg PO BID
furosemide 40 MG tablet
40 mg PO MOWEFR@0800,1700
amiodarone 200 mg Tablet
200 mg PO DAILY Qty: 0
furosemide [Lasix] 40 mg Tablet
40 mg PO SUTUTHSA@0800
acetaminophen [Tylenol] 325 mg Tablet
650 mg PO Q4HPRN PRN (Reason: mild pain)
aspirin 81 mg Tablet,Delayed Release (Dr/Ec)
81 mg PO DAILY
spironolactone 25 mg Tablet
12.5 mg PO DAILY
albuterol sulfate 90 mcg/actuation Hfa Aerosol Inhaler
2 puff INHALATION R Q6HPRN PRN (Reason: sob)
Discharge Orders:
Discharge Patient (As Directed); Ordered 10/17/24
Ordered By: Sinan Bobby
Discharge Date and Time
Discharge Date/Time: 10/17/24 15:21
Print Language: FAROESE
--- NOTE | 2024-10-17 12:52 | CM ---
CM met with pt at bedside.
Pt reports feeling well. No oxygen needs.
IMM done, signed copy placed on chart.
Discharge dispo is home no needs.
[2024-10-17] MEDS: STERILE WATER FOR INJECTION 20 ML IV (13:48)
[2024-10-17] MEDS: ROCEPHIN 2000 MG IV (13:48)
[2024-10-17] MEDS: DECADRON 6 MG IV (13:49)
[2024-10-17] MEDS: FLUSH (NSS) 3 FLUSH IV (13:51)
[2024-10-17 15:00] VITALS: BP 171/72
[2024-10-17] MEDS: DUONEB INH (15:12)
== END 2024-10-17 15:21 | disposition home or self-care (01) | DRG 291 ==
LOC: 4 EAST ACU 13:59
PROVIDERS: ADMITTING PHYSICIAN Internal Medicine; ATTENDING PHYSICIAN Hospitalist; EMERGENCY PHYSICIAN Emergency Medicine; FAMILY PHYSICIAN Family Medicine Sports Medicine
PROC: 5A09357 Assistance with Respiratory Ventilation, Less than 24 Consecutive Hours, Continuous Positive Airway Pressure (ICD-10-PCS; 2024-10-12)
DX: I13.0 Hypertensive heart and chronic kidney disease with heart failure and stage 1 through stage 4 chronic kidney disease, or unspecified chronic kidney disease (principal); A41.9 Sepsis, unspecified organism; I50.43 Acute on chronic combined systolic (congestive) and diastolic (congestive) heart failure; N17.9 Acute kidney failure, unspecified; Z68.42 Body mass index [BMI] 45.0-49.9, adult; J20.9 Acute bronchitis, unspecified; R09.02 Hypoxemia; R06.89 Other abnormalities of breathing; E66.01 Morbid (severe) obesity due to excess calories; G47.33 Obstructive sleep apnea (adult) (pediatric); I25.10 Atherosclerotic heart disease of native coronary artery without angina pectoris; E78.00 Pure hypercholesterolemia, unspecified; Z98.61 Coronary angioplasty status; Z11.52 Encounter for screening for COVID-19; Z79.01 Long term (current) use of anticoagulants; Z79.82 Long term (current) use of aspirin; Z79.899 Other long term (current) drug therapy; I48.0 Paroxysmal atrial fibrillation; N18.2 Chronic kidney disease, stage 2 (mild); Z87.891 Personal history of nicotine dependence; Z96.642 Presence of left artificial hip joint; Z96.652 Presence of left artificial knee joint
CPT/HCPCS: 71045; 71046; 80048; 82570; 83735; 83880; 84145; 84300; 84484; 85025; 87040; 87502; 87811; 93005; 94640; 94660; 94760; 96374; 96375; 97116; 97162; 97166; 97530; 99285

== ENCOUNTER 2024-11-12 15:12 | Inpatient (IN) | payer OTHER, SELFPAY ==
[2024-11-12 11:42] VITALS: BP 159/67
[2024-11-12 12:28] LABS: % Basophils 0.2 % (0-2); % Immature Granulocytes 0.7 % (0-0.5); % Lymphocytes 6.9 % (20.5-51.1); % Monocytes 4.1 % (1.7-9.3); % Neutrophils 88.1 % (42.2-75.2); Absolute Lymphocytes 0.4 10^3/uL (1.2-3.4); Absolute Monocytes 0.2 10^3/uL (0.1-0.6); Absolute Neutrophils 4.7 10^3/uL (1.4-6.5); Hematocrit 41.9 % (39.0-52.0); Mean Corp Hgb Conc. 33.4 g/dL (33.0-37.0); Mean Corpuscular Hgb 32.1 pg (27.0-31.0); Mean Corpuscular Volume 96.1 fL (80.0-94.0); Mean Platelet Volume 10.6 fL (7.4-10.4); Nucleated Red Blood Cells % 0 % (-); Platelet Count 148 10^3/uL (130-400); Red Blood Cell Count 4.36 10^6/uL (4.70-6.10); Red Cell Dist. Width 15.3 % (11.5-14.5); White Blood Cell Count 5.3 10^3/uL (4.8-10.8)
[2024-11-12 12:42] LABS: COVID-19 Antigen Negative (Negative)
[2024-11-12 12:43] LABS: ALT (SGPT) 29 U/L (0-50); AST (SGOT) 26 U/L (17-59); Albumin 3.9 g/dl (3.5-5.0); Alkaline Phosphatase 60 U/L (38-126); Blood Urea Nitrogen 25 mg/dl (9-20); Calcium 8.8 mg/dl (8.4-10.2); Carbon Dioxide 28 mmol/L (22-30); Chloride 99 mmol/L (98-107); Glucose 258 mg/dl (70-99); Potassium 4.1 mmol/L (3.5-5.1); Sodium 136 mmol/L (135-145); Total Bilirubin 0.8 mg/dl (0.2-1.3); Total Protein 6.2 g/dl (6.3-8.2); eGFR > 60.00
--- NOTE | 2024-11-12 13:17 | ED.GENMED ---
History of Present Illness
General
Chief Complaint: Cough
Source: patient
Time Seen by Provider: 11/12/24 13:09
History of Present Illness
History of Present Illness:
68 yr old male with hx of 'bronchitis' in past presents with what he suspects is another bronchitis event. He says he usually improves with steroids and abx, took 40 mg of his steroids yesterday, and 30 mg today. He is also using her neb q4hr
with partial ros. His sxs of cough wheezing and mild fatigue started very mildly on , worse by sat. No f/c/n/v/anorexia/cp/back pain/leg swelling or other complnts.
Past History
Past History
ED Past Medical History: Arrthythmia, CAD, HTN and Hypercholesterolemia
ED Past Surgical History: Cardiac and Tonsilectomy
Social History
Tobacco: Former smoker
Alcohol: None
Drug: None
Personal: Other
Living: with family
Employment: Employed
Family History
Family History: Unable to obtain
Phy Exam
Physical Exam
Physical Exam:
AAO tmesthree, pleasant
PERRL, mmm o/p clear
neck supple
hrt rrr
lung diffuse wheezing, bs equal throughout, occas nonprod cough, no rales/rhonchi, no stridor, no drool, speech clear
abd soft, nt,nd
extrem no c/c, tr edema
skin warm, well perfused
psych appropriate, pleasant
neuro itnact
Course
Orders/Labs/Results
Orders:
Orders
11/12/24 11:46
EKG [Electrocardiogram (*1)] Urgent
Reason for Study: Shortness of Breath
EKG- Treatment ONCE
11/12/24 11:57
COVID-19 Antigen Urgent
Source: Nasal Swab
Complete Blood Count/With Diff Urgent
Comprehensive Metabolic Panel Urgent
INF RAPID [Influenza A+B Rapid Molecular] Urgent
MARISA Source: Nasal Swab
Specimen Description:
Abnormal Lab Results
11/12/24
11:57
RBC 4.36 L 10^6/uL
(4.70-6.10)
MCV 96.1 H fL
(80.0-94.0)
MCH 32.1 H pg
(27.0-31.0)
RDW 15.3 H %
(11.5-14.5)
MPV 10.6 H fL
(7.4-10.4)
Absolute Lymphs (auto) 0.4 L 10^3/uL
(1.2-3.4)
Immature Gran % 0.7 H %
(0-0.5)
Neutrophils % 88.1 H %
(42.2-75.2)
Lymphocytes % 6.9 L %
(20.5-51.1)
BUN 25 H mg/dl
(9-20)
Glucose 258 H mg/dl
(70-99)
Total Protein 6.2 L g/dl
(6.3-8.2)
11/12/24 11:57
11/12/24 11:57
Vital Signs
Initial and Last Documented VS:
Initial Vital Signs
Temp Pulse Resp BP Pulse Ox
97.8 F 73 20 159/67 94
11/12/24 11:42 11/12/24 11:42 11/12/24 11:42 11/12/24 11:42 11/12/24 11:42
Last Documented Vital Signs
Temp Pulse Resp BP Pulse Ox
97.8 F 73 20 159/67 94
11/12/24 11:42 11/12/24 11:42 11/12/24 11:42 11/12/24 11:42 11/12/24 11:42
MDM/Problems Addressed
Differential Diagnosis Includes:
but not limited to covid, flu, bronchitis, pneumonia, etc etc.
*Radiology
Radiology exam reviewed: other (na)
*Pulse Oximetry
Patient hypoxic: no
*EKG
Interpreted by ED Provider?: Yes
EKG Intrepretation Date: 11/12/24
EKG Intrepretation Time: 13:22
Interpretation: normal
Rate: normal
Rhythm: sinus
Kenedy: normal axis
Interval: normal interval
QRS Pattern: low voltage
Ischemia: no ischemia
*Assembler Mechanical [employer]dnance Interpretation
Rate: Assembler Mechanical [employer]dn[employer]- N/A
*Critical Care Note
Total Time (30-74mins, 75-104mins- exclusive of procedures): Not Applicable
Patient Management
Social determinants of health affecting care: Strong social support
Update Note
Update Note:
Pt will be given 30 mg more of steroids, and complete courses with outpt rx. D/w pt importance of f/u and reasonsn to rted. Stable, overall well appearing.
ED Attending Note
-
Portions of this chart may have been created with voice recognition software.� Occasional wrong word or��sound alike� substitutions may have occurred due to the inherent limitations of voice recognition software.
Discharge Plan
Departure
Patient Disposition: Home (Routine Discharge)
Date of Disposition: 11/12/24
Time of Disposition: 13:22
Patient with high blood pressure during this ER visit?: Yes
Condition: Good
Discharge Problem:
Influenza
Instructions: Flu, Cough, Adult (DC), BLOOD PRESSURE
Prescriptions:
New
oseltamivir [Tamiflu] 75 mg capsule
75 mg PO BID Qty: 10 0RF
prednisone 50 mg tablet
50 mg PO DAILY Qty: 5 0RF
albuterol sulfate 90 mcg/actuation aerosol powdr breath activated
2 inh inhalation Q4H PRN (Reason: shortness of breath or wheezing) Qty: 1 0RF
No Action
losartan 25 MG tablet
25 mg PO DAILY
Eliquis 5 MG tablet
5 mg PO BID
atorvastatin 80 MG tablet
80 mg PO QPM
metoprolol succinate 25 MG tablet extended release 24 hr
25 mg PO BID
furosemide 40 MG tablet
40 mg PO MOWEFR@0800,1700
amiodarone 200 mg Tablet
200 mg PO DAILY Qty: 0
furosemide [Lasix] 40 mg Tablet
40 mg PO SUTUTHSA@0800
acetaminophen [Tylenol] 325 mg Tablet
650 mg PO Q4HPRN PRN (Reason: mild pain)
aspirin 81 mg Tablet,Delayed Release (Dr/Ec)
81 mg PO DAILY
spironolactone 25 mg Tablet
12.5 mg PO DAILY
albuterol sulfate 90 mcg/actuation Hfa Aerosol Inhaler
2 puff INHALATION R Q6HPRN PRN (Reason: sob)
prednisone 10 mg Tablet
See Rx Instructions .ROUTE .COMPLEX Qty: 30 0RF
Rx Instructions:
Take By Mouth:
40 mg daily x3 days, 30 mg daily x3 days,
20 mg daily x3 days, 10 mg daily x3 days.
benzonatate 100 mg Capsule
200 mg PO BID Qty: 20 0RF
ipratropium-albuterol 0.5 mg-3 mg(2.5 mg base)/3 mL solution for nebulization
3 ml inhalation Q4H PRN (Reason: wheezing) Qty: 90 0RF
Activity Restrictions/Additional Instructions:
IF YOU DEVELOP CONTINUED/WORSENING WHEEZING OR SHORTNESS OF BREATH, ANY CHEST PAIN, REPEATED VOMITING, DIZZINESS OR OTHER WORRISOME SIGNS, GO TO THE ER IMMEDIATELY!
Discharge Date and Time
Print Language: MALDIVIAN
[2024-11-12] MEDS: TAMIFLU 75 MG PO ×2 (13:39→21:03)
[2024-11-12] MEDS: DELTASONE 30 MG PO (13:39)
--- NOTE | 2024-11-12 13:39 | ED.GENMED ---
History of Present Illness
General
Chief Complaint: Cough
Time Seen by Provider: 11/12/24 13:09
Past History
Past History
ED Past Medical History: Arrthythmia, CAD, HTN and Hypercholesterolemia
ED Past Surgical History: Cardiac and Tonsilectomy
Social History
Tobacco: Former smoker
Alcohol: None
Drug: None
Personal: Other
Living: with family
Employment: Employed
Family History
Family History: Unable to obtain
Course
Orders/Labs/Results
Orders:
Orders
11/12/24 11:46
EKG [Electrocardiogram (*1)] Urgent
Reason for Study: Shortness of Breath
EKG- Treatment ONCE
11/12/24 11:57
COVID-19 Antigen Urgent
Source: Nasal Swab
Complete Blood Count/With Diff Urgent
Comprehensive Metabolic Panel Urgent
INF RAPID [Influenza A+B Rapid Molecular] Urgent
MARISA Source: Nasal Swab
Specimen Description:
11/12/24 13:17
Albuterol [ProAIR HFA INHALER] 2 puff INH R NOW STA
Oseltamivir Phosphate [Tamiflu] 75 mg PO NOW STA
Prednisone [Deltasone] 30 mg PO NOW STA
11/12/24 13:36
Add On- LAB Urgent
Tests Added?: BNP, TROPONIN
CR Chest - 2 Views Urgent
Comment:
Reason For Exam: FLU, SOB, HX HF
Abnormal Lab Results
11/12/24
11:57
RBC 4.36 L 10^6/uL
(4.70-6.10)
MCV 96.1 H fL
(80.0-94.0)
MCH 32.1 H pg
(27.0-31.0)
RDW 15.3 H %
(11.5-14.5)
MPV 10.6 H fL
(7.4-10.4)
Absolute Lymphs (auto) 0.4 L 10^3/uL
(1.2-3.4)
Immature Gran % 0.7 H %
(0-0.5)
Neutrophils % 88.1 H %
(42.2-75.2)
Lymphocytes % 6.9 L %
(20.5-51.1)
BUN 25 H mg/dl
(9-20)
Glucose 258 H mg/dl
(70-99)
Total Protein 6.2 L g/dl
(6.3-8.2)
11/12/24 11:57
11/12/24 11:57
Vital Signs
Initial and Last Documented VS:
Initial Vital Signs
Temp Pulse Resp BP Pulse Ox
97.8 F 73 20 159/67 94
11/12/24 11:42 11/12/24 11:42 11/12/24 11:42 11/12/24 11:42 11/12/24 11:42
Last Documented Vital Signs
Temp Pulse Resp BP Pulse Ox
97.8 F 73 20 159/67 94
11/12/24 11:42 11/12/24 11:42 11/12/24 11:42 11/12/24 11:42 11/12/24 11:42
Update Note
Update Note:
139 PM Initially, consideratino for d/c home, as pt's pox 93-94% on ra. Then, case dw who describes pts sxs at home to be concerning re:sob, despite using her meds (nebs q4hr, steroids). I walked pt down hallway, on return to bed, he is very
dyspneic tachycardic and now hypoxic at 88%. D/w RN steroids and plan of care, will admit for obs.
ED Attending Note
-
Portions of this chart may have been created with voice recognition software.� Occasional wrong word or��sound alike� substitutions may have occurred due to the inherent limitations of voice recognition software.
Discharge Plan
Departure
Patient Disposition: Admit
Date of Disposition: 11/12/24
Time of Disposition: 13:22
Admit to: Med/Surg
Presentation/result/management discussed w/ accepting MD/DO: Hospitalist
Patient with high blood pressure during this ER visit?: Yes
Condition: Good
Discharge Problem:
Influenza
Instructions: Flu, Cough, Adult (DC), BLOOD PRESSURE
Prescriptions:
New
oseltamivir [Tamiflu] 75 mg capsule
75 mg PO BID Qty: 10 0RF
prednisone 50 mg tablet
50 mg PO DAILY Qty: 5 0RF
albuterol sulfate 90 mcg/actuation aerosol powdr breath activated
2 inh inhalation Q4H PRN (Reason: shortness of breath or wheezing) Qty: 1 0RF
No Action
losartan 25 MG tablet
25 mg PO DAILY
Eliquis 5 MG tablet
5 mg PO BID
atorvastatin 80 MG tablet
80 mg PO QPM
metoprolol succinate 25 MG tablet extended release 24 hr
25 mg PO BID
furosemide 40 MG tablet
40 mg PO MOWEFR@0800,1700
amiodarone 200 mg Tablet
200 mg PO DAILY Qty: 0
furosemide [Lasix] 40 mg Tablet
40 mg PO SUTUTHSA@0800
acetaminophen [Tylenol] 325 mg Tablet
650 mg PO Q4HPRN PRN (Reason: mild pain)
aspirin 81 mg Tablet,Delayed Release (Dr/Ec)
81 mg PO DAILY
spironolactone 25 mg Tablet
12.5 mg PO DAILY
albuterol sulfate 90 mcg/actuation Hfa Aerosol Inhaler
2 puff INHALATION R Q6HPRN PRN (Reason: sob)
prednisone 10 mg Tablet
See Rx Instructions .ROUTE .COMPLEX Qty: 30 0RF
Rx Instructions:
Take By Mouth:
40 mg daily x3 days, 30 mg daily x3 days,
20 mg daily x3 days, 10 mg daily x3 days.
benzonatate 100 mg Capsule
200 mg PO BID Qty: 20 0RF
ipratropium-albuterol 0.5 mg-3 mg(2.5 mg base)/3 mL solution for nebulization
3 ml inhalation Q4H PRN (Reason: wheezing) Qty: 90 0RF
Activity Restrictions/Additional Instructions:
IF YOU DEVELOP CONTINUED/WORSENING WHEEZING OR SHORTNESS OF BREATH, ANY CHEST PAIN, REPEATED VOMITING, DIZZINESS OR OTHER WORRISOME SIGNS, GO TO THE ER IMMEDIATELY!
Discharge Date and Time
Print Language: KHMER
[2024-11-12 14:01] VITALS: BP 121/52
--- NOTE | 2024-11-12 14:04 | HPS.HSE ---
Family Physician
-
Family Physician: NITHYA BRADSHAW,DO
Chief Complaint
-
Cough and Dyspnea on Exertion
History of Present Illness
Patient is a 68-year-old male past medical history of CAD, CHF, A-fib, hypertension, CKD, LEODAN, and morbid obesity who presents with cough and shortness of breath. Patient reports he started to feel unwell 3 days ago. He reports mostly dry cough.
He reports significant chills on Tuesday and Tuesday. He then developed increasing dyspnea on exertion. Today he was unable to go up the stairs without stopping several times to rest prompting him to present to the emergency department for
evaluation. He denies chest pain or palpitations. He reports his weight is overall stable.
Medical History
Past Medical History
Past Medical History: Reports Other
Additional Past Medical History:
Coronary Artery Disease s/p PCI x 2
Combined Systolic/Diastolic Heart Failure
Paroxysmal Atrial Fibrillation
Essential Hypertension
Hyperlipidemia
CKD Stage II
Obstructive Sleep Apnea
Morbid Obesity
Past Surgical History: Reports Other
Additional Past Surgical History:
PCI x 2
Left Knee Replacement
Left Hip Replacement
Social History
Tobacco: Non-smoker
Alcohol: Former (Sober for over 30 years)
Drug: None
Family History
Family History: Not pertinent
Allergies / Home Medications
Allergies reflects when Allergies were last updated in [employer].
Home Medications with original date entered in [employer]
Allergy/Medication List:
Allergies
Allergy/AdvReac Type Severity Reaction Status Date / Time
No Known Allergies Allergy Verified 11/12/24 11:41
Home Medications
apixaban 5 mg tablet (Eliquis) 5 mg PO BID Blood clot prevention/tx 09/29/21
atorvastatin 80 mg tablet 80 mg PO DAILY High cholesterol 09/29/21
losartan 25 mg tablet 25 mg PO DAILY Blood pressure 09/29/21
metoprolol succinate 25 mg tablet,extended release 24 hr 25 mg PO BID Heart disease/condition 01/28/22
amiodarone 200 mg tablet 200 mg PO DAILY Heart disease/condition ##0 02/26/22
furosemide 40 mg tablet 40 mg PO MOWEFR@0800,1700 Fluid retention/Swelling 02/26/22
acetaminophen 325 mg tablet (Tylenol) 650 mg PO Q4HPRN PRN mild pain 10/12/24
aspirin 81 mg tablet,delayed release 81 mg PO DAILY 10/12/24
furosemide 40 mg tablet (Lasix) 40 mg PO SUTUTHSA@0800 10/12/24
spironolactone 25 mg tablet 12.5 mg PO DAILY 10/12/24
guaifenesin 100 mg/5 mL oral liquid 200 mg PO Q4HPRN PRN COUGH 11/12/24
ipratropium 0.5 mg-albuterol 3 mg (2.5 mg base)/3 mL nebulization soln 3 ml inhalation R Q4HPRN PRN wheezing 11/12/24
levalbuterol tartrate 45 mcg/actuation aerosol inhaler (Xopenex HFA) 2 inh inhalation R Q6HPRN PRN SOB 11/12/24
Review of Systems
-
A 12 point ROS was completed and negative except as noted: Yes
Constitutional: Reports Chills
Respiratory: Reports Cough and Trouble Breathing
Cardiac: Denies Chest Pain or Palpitations
Physical Exam
Vital Signs
Vital Signs
Temp Pulse Resp BP Pulse Ox
97.8 F 73 20 159/67 94
11/12/24 11:42 11/12/24 11:42 11/12/24 11:42 11/12/24 11:42 11/12/24 11:42
Physical Exam
General: Comfortable, Conversant and Morbidly Obese
HEENT: Anicteric and Moist mucous membranes
Respiratory: Wheezes (Diffuse particularly anteriorly) and Non Labored Respirations
Cardiac: S1/S2 and Regular Rhythm
GI: Soft and Non Tender
Rectal: Deferred by Provider
Musculoskeletal: No Clubbing and No Cyanosis
Skin: Warm and Dry
Neuro: Awake, Alert, Oriented and Nonfocal/grossly intact
Psych: Calm
Laboratory Results
-
11/12/24 11:57
11/12/24 11:57
Laboratory Results
Total Bilirubin 0.8 mg/dl (0.2-1.3) 11/12/24 11:57
AST 26 U/L (17-59) 11/12/24 11:57
ALT 29 U/L (0-50) 11/12/24 11:57
Alkaline Phosphatase 60 U/L (38-126) 11/12/24 11:57
Data Reviewed
-
Diagnostic Radiology: Image Personally Visualized and interpreted
Lab Data: Labs Reviewed by me
Impression/Plan
-
Acute Bronchitis secondary to Influenza Type A
-Continue Tamiflu
-Continue Decadron 4mg Q8H
-Continue DuoNeb QID and PRN
-Continue Mucinex and Tessalon Perles
-Check ambulatory pulse ox in AM
Hyperglycemia, no prior history of diabetes
-Sugars likely to run higher with addition of steroids
-Check HgbA1c
-Monitor sugars and continue coverage insulin
Coronary Artery Disease s/p PCI x 2
-Continue aspirin
Combined Systolic/Diastolic Heart Failure
-Continue Lasix and Spironolactone
-Monitor Daily Weights
Paroxysmal Atrial Fibrillation
-Continue amiodarone and metoprolol for rate/rhythm control
-Continue Eliquis for anticoagulation
Essential Hypertension
-Continue losartan and metoprolol
Hyperlipidemia
-Continue atorvastatin
CKD Stage II
-Creatinine at baseline
Obstructive Sleep Apnea
-Continue CPAP
Morbid Obesity
-Affects all aspects of care
DVT proph: Eliquis
Code Status: Full Code
--- NOTE | 2024-11-12 14:35 | W.PN.UPDATE ---
Update Note
Progress Note Update
This is an addendum to the H&P written by Ale Leslie on 11/12/2024.� Patient seen and examined independently with PA.
68-year-old male past medical history of CAD status post PCI x 2, paroxysmal atrial fibrillation, heart failure, obstructive sleep apnea, hypertension, hyperlipidemia, obesity, CKD stage II, presenting with shortness of breath, cough and fever for
the past 2 days.
Influenza A positive.
Chest x-ray does not appear to show any infiltrates although report pending.
Patient with acute bronchitis secondary to influenza.� Tamiflu started.� DuoNebs every 6 hours, dexamethasone.
[2024-11-12] MEDS: DUONEB 3 ML INH ×2 (14:41→20:40)
[2024-11-12 15:32] LABS: NT-proBNP 1340 pg/ml; Troponin I 0.021 ng/ml
[2024-11-12 18:44] VITALS: BMI 46.1
[2024-11-12 19:45] VITALS: BP 128/58
[2024-11-12] MEDS: LASIX 40 MG PO (19:56)
[2024-11-12 19:57] LABS: Glucose - Point of Care 312 mg/dl (70-99)
[2024-11-12] MEDS: NOVOLOG FLEXPEN-LOW RESISTANCE 4 UNITS SC (20:01)
[2024-11-12] MEDS: DUONEB INH (20:39)
[2024-11-12] MEDS: MUCINEX 600 MG PO (21:00)
[2024-11-12] MEDS: ELIQUIS 5 MG PO (21:00)
[2024-11-12] MEDS: DECADRON 4 MG IV (21:00)
[2024-11-12] MEDS: TOPROL XL 25 MG PO (21:01)
[2024-11-12 21:08] VITALS: BP 128/58
[2024-11-12] MEDS: TESSALON PERLES 200 MG PO (21:23)
[2024-11-12 22:30] VITALS: PULSE 90
[2024-11-12 23:05] VITALS: BP 110/60
[2024-11-12 23:11] LABS: Glucose - Point of Care 263 mg/dl (70-99)
[2024-11-13 03:10] VITALS: BP 125/65
[2024-11-13 03:30] VITALS: PULSE 88
[2024-11-13] MEDS: DECADRON 4 MG IV (05:39)
[2024-11-13 05:41] VITALS: BMI 45.7
[2024-11-13] MEDS: DUONEB 3 ML INH ×3 (07:12→13:59)
[2024-11-13 07:20] VITALS: BP 125/65
[2024-11-13 07:36] LABS: Blood Urea Nitrogen 29 mg/dl (9-20); Calcium 8.5 mg/dl (8.4-10.2); Carbon Dioxide 33 mmol/L (22-30); Chloride 96 mmol/L (98-107); Estimated Creatinine Clearance 88 ml/min; Glucose 177 mg/dl (70-99); Sodium 137 mmol/L (135-145); eGFR > 60.00
[2024-11-13 07:37] LABS: Glucose - Point of Care 184 mg/dl (70-99)
[2024-11-13] MEDS: LIPITOR 80 MG PO (08:29)
[2024-11-13] MEDS: MUCINEX 600 MG PO (08:29)
[2024-11-13] MEDS: ALDACTONE 12.5 MG PO (08:29)
[2024-11-13] MEDS: ASPIR LOW (ENTERIC COATED) 81 MG PO (08:29)
[2024-11-13] MEDS: COZAAR 25 MG PO (08:33)
[2024-11-13] MEDS: PACERONE 200 MG PO (08:33)
[2024-11-13] MEDS: TOPROL XL 25 MG PO (08:34)
[2024-11-13] MEDS: TAMIFLU 75 MG PO (08:35)
[2024-11-13] MEDS: ELIQUIS 5 MG PO (08:35)
[2024-11-13] MEDS: LASIX 40 MG PO (08:35)
[2024-11-13] MEDS: NOVOLOG FLEXPEN-LOW RESISTANCE 1 UNITS SC (08:36)
[2024-11-13] MEDS: TESSALON PERLES 200 MG PO (08:48)
[2024-11-13 11:32] LABS: Glycohemoglobin (HgbA1c) 6.7 % (4.0-5.6)
[2024-11-13 12:20] LABS: Glucose - Point of Care 234 mg/dl (70-99)
[2024-11-13] MEDS: NOVOLOG FLEXPEN-LOW RESISTANCE 2 UNITS SC (12:44)
--- NOTE | 2024-11-13 13:30 | W.PN.HOSP.TC ---
Addendum entered and electronically signed by Inder Narvaez MD 11/14/24 16:40:
[id number]
Addendum entered and electronically signed by Inder Narvaez MD 11/13/24 16:13:
ct unremarkable - dc
Original Note:
Today's Communication/Plan
-
ct chest
iv lasix, resume po regimen outpt
doxy x 5 days
tamiflu
f/u pcp, pulm, pcp outpt
Assessment / Plan
Assessment / Plan
Physical Exam
General: Comfortable, Conversant and Morbidly Obese
HEENT: Anicteric and Moist mucous membranes
Respiratory: no audible wheezing and Non Labored Respirations, speaking full sentences
Cardiac: S1/S2 and Regular Rhythm
GI: Soft and Non Tender
Rectal: Deferred by Provider
Musculoskeletal: No Clubbing and No Cyanosis
Skin: Warm and Dry
Neuro: Awake, Alert, Oriented and Nonfocal/grossly intact
Psych: Calm
Acute Bronchitis secondary to Influenza Type A
-Continue Tamiflu
-doxycycline 5 days
-Continue Mucinex and Tessalon Perles
-95% upon ambulation
-Can obtain CT chest imaging due to patients persistent complaints - f/u oupt pulmonary
Coronary Artery Disease s/p PCI x 2
-Continue aspirin
Acute on Chronic Combined Systolic/Diastolic Heart Failure
-Continue Lasix and Spironolactone
-Monitor Daily Weights
-recent ECHO in 06/09 - no need for repeat at this time
-f/u cards outpt
Paroxysmal Atrial Fibrillation
-Continue amiodarone and metoprolol for rate/rhythm control
-Continue Eliquis for anticoagulation
Essential Hypertension
-Continue losartan and metoprolol
Hyperlipidemia
-Continue atorvastatin
CKD Stage II
-Creatinine at baseline
Obstructive Sleep Apnea
-Continue CPAP
Morbid Obesity
-Affects all aspects of care
DVT proph: Eliquis
Code Status: Full Code
More than 30 minutes spent in discharge including
Final examination of the patient
Summarizing hospital stay
Instructions for continuing care to all relevant caregivers
Preparation of discharge records, prescriptions, and referral forms
Total time spent (36 in minutes):
Anticipated Discharge: Today
Subjective/Interval History
-
Date of Service: November 13, 2024
Patient speaking full sentences, does not appear to have any respiratory difficulty although patient states he does. Saturating 95% upon ambulation
Objective Data
-
Labs:
Laboratory Results
11/13/24
06:00
Sodium 137
Potassium 4.0
Chloride 96 L
Carbon Dioxide 33 H
BUN 29 H
Creatinine 1.2
Glucose 177 H
Calcium 8.5
Vital Signs:
Vital Signs
Temp Pulse Resp BP Pulse Ox
97.8 F 80 14 141/75 96
11/13/24 07:20 11/13/24 11:11 11/13/24 11:11 11/13/24 08:35 11/13/24 11:11
I&O
11/12/24 11/13/24 11/14/24
06:59 06:59 06:59
Intake Total 240 / 240
Balance 240 / 240
Review of Systems
-
History Source: Patient
All other systems: Not reviewed unless documented
Data Reviewed
-
Total Time Spent with Patient (in minutes): 55
Diagnostic Radiology: Report Reviewed by me
Labs: Labs Reviewed by me
[2024-11-13] MEDS: LASIX 40 MG IV (13:40)
[2024-11-13 15:15] VITALS: BP 125/65
[2024-11-13 15:57] VITALS: BP 131/55; PULSE 70; O2SAT 94
--- NOTE | 2024-11-13 16:28 | W.DS.TRANS ---
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
-
Discharge Instructions:
Discharge Diagnosis/Procedures FLU A
Diet Low Fat,Low Cholesterol
Activity As tolerated
Blood Work cbc and bmp in 1 week with PCP
Instructions:
Stand-Alone Forms:
Changes to Home Medications: Yes
Discharge Medications:
DC Medications w/original date entered in [facility]
apixaban 5 mg tablet (Eliquis) 5 mg PO BID Blood clot prevention/tx 09/29/21
atorvastatin 80 mg tablet 80 mg PO DAILY High cholesterol 09/29/21
losartan 25 mg tablet 25 mg PO DAILY Blood pressure 09/29/21
metoprolol succinate 25 mg tablet,extended release 24 hr 25 mg PO BID Heart disease/condition 01/28/22
amiodarone 200 mg tablet 200 mg PO DAILY Heart disease/condition ##0 02/26/22
furosemide 40 mg tablet 40 mg PO MOWEFR@0800,1700 Fluid retention/Swelling 02/26/22
acetaminophen 325 mg tablet (Tylenol) 650 mg PO Q4HPRN PRN mild pain 10/12/24
aspirin 81 mg tablet,delayed release 81 mg PO DAILY Blood Clot Prevention/Tx 10/12/24
furosemide 40 mg tablet (Lasix) 40 mg PO SUTUTHSA@0800 Fluid Retention/Swelling 10/12/24
spironolactone 25 mg tablet 12.5 mg PO DAILY Fluid Retention/Swelling 10/12/24
guaifenesin 100 mg/5 mL oral liquid 200 mg PO Q4HPRN PRN COUGH 11/12/24
ipratropium 0.5 mg-albuterol 3 mg (2.5 mg base)/3 mL nebulization soln 3 ml inhalation R Q4HPRN PRN wheezing 11/12/24
levalbuterol tartrate 45 mcg/actuation aerosol inhaler (Xopenex HFA) 2 inh inhalation R Q6HPRN PRN SOB 11/12/24
benzonatate 100 mg capsule 200 mg (2 x 100 mg) PO TIDPRN PRN cough #30 caps 11/13/24
doxycycline hyclate 100 mg capsule 100 mg PO Q12 5 days #10 caps 11/13/24
oseltamivir 75 mg capsule 75 mg PO BID 4 days #8 caps 11/13/24
Home Medication Changes
benzonatate 100 mg capsule 200 mg (2 x 100 mg) PO TIDPRN PRN cough #30 caps 11/13/24
doxycycline hyclate 100 mg capsule 100 mg PO Q12 5 days #10 caps 11/13/24
oseltamivir 75 mg capsule 75 mg PO BID 4 days #8 caps 11/13/24
Pending Results: No
--- NOTE | 2024-11-13 16:31 | CM ---
Patient seen at bedside.
IA completed
IMM explained & signed. In chart
Lives in a multistory home with significant other, 0 steps to enter, 14 steps to second floor
PLOF: Independent
Denies DME
Denies HH/outpatient therapy in past for knee replacement
PCP: Esvin Segovia
Pharmacy: [facility]
PLAN: Home, no needs
significant other Jodi to transport
--- NOTE | 2024-11-13 17:54 | PTCARENOTE ---
Patient discharged home, transported by . This RN reviewed discharge instructions with patient who verbalized understanding. Paper scripts for tessalon perles, doxy, and tamiflu provided per MD. IV removed by this RN, vitals taken by tech stable
prior to DC. Patient dressed independently and gathered belongings in room, taken down to 's car at main lobby via staff escort and wheelchair.
== END 2024-11-13 17:46 | disposition home or self-care (01) | DRG 193 ==
LOC: 2 NORTH 15:12
PROVIDERS: Physician Assistant Medical; Student in an Organized Health Care Education/Training Program; ADMITTING PHYSICIAN Hospitalist; ATTENDING PHYSICIAN Internal Medicine; EMERGENCY PHYSICIAN Emergency Medicine; FAMILY PHYSICIAN Family Medicine Sports Medicine
PROC: 5A09357 Assistance with Respiratory Ventilation, Less than 24 Consecutive Hours, Continuous Positive Airway Pressure (ICD-10-PCS; 2024-11-12)
DX: J10.1 Influenza due to other identified influenza virus with other respiratory manifestations (principal); I50.43 Acute on chronic combined systolic (congestive) and diastolic (congestive) heart failure; I13.0 Hypertensive heart and chronic kidney disease with heart failure and stage 1 through stage 4 chronic kidney disease, or unspecified chronic kidney disease; Z68.42 Body mass index [BMI] 45.0-49.9, adult; G47.33 Obstructive sleep apnea (adult) (pediatric); E78.00 Pure hypercholesterolemia, unspecified; E66.01 Morbid (severe) obesity due to excess calories; I25.10 Atherosclerotic heart disease of native coronary artery without angina pectoris; I48.0 Paroxysmal atrial fibrillation; R73.9 Hyperglycemia, unspecified; N18.2 Chronic kidney disease, stage 2 (mild); Z98.61 Coronary angioplasty status; Z96.652 Presence of left artificial knee joint; Z20.822 Contact with and (suspected) exposure to COVID-19; Z96.642 Presence of left artificial hip joint; Z87.891 Personal history of nicotine dependence; Z79.01 Long term (current) use of anticoagulants; Z79.899 Other long term (current) drug therapy; Z79.82 Long term (current) use of aspirin
CPT/HCPCS: 71046; 71250; 80048; 80053; 82962; 83036; 83880; 84484; 85025; 87502; 87811; 93005; 94640; 97116; 97161; 97165; 99285

== ENCOUNTER → 2025-01-17 13:50 | Outpatient (REF) | payer OTHER, SELFPAY | LOC: RAD 13:50 | PROVIDERS: ATTENDING PHYSICIAN Nurse Practitioner | DX: J40 Bronchitis, not specified as acute or chronic (principal) | CPT/HCPCS: 71046 ==

== ENCOUNTER 2025-01-21 21:43 | Inpatient (IN) | payer OTHER, SELFPAY ==
[2025-01-21 15:42] VITALS: BP 154/74
[2025-01-21 16:06] LABS: % Basophils 0.3 % (0-2); % Immature Granulocytes 0.4 % (0-0.5); % Lymphocytes 9.8 % (20.5-51.1); % Monocytes 1.5 % (1.7-9.3); Absolute Lymphocytes 0.8 10^3/uL (1.2-3.4); Absolute Monocytes 0.1 10^3/uL (0.1-0.6); Absolute Neutrophils 7.1 10^3/uL (1.4-6.5); Hematocrit 44.2 % (39.0-52.0); Hemoglobin 14.7 g/dL (13.0-18.0); Mean Corp Hgb Conc. 33.3 g/dL (33.0-37.0); Mean Corpuscular Hgb 32.6 pg (27.0-31.0); Mean Platelet Volume 10.7 fL (7.4-10.4); Nucleated Red Blood Cells % 0 % (-); Platelet Count 181 10^3/uL (130-400); Red Blood Cell Count 4.51 10^6/uL (4.70-6.10); Red Cell Dist. Width 14.6 % (11.5-14.5)
[2025-01-21 16:26] LABS: NT-proBNP 2130 pg/ml; Troponin I 0.017 ng/ml
[2025-01-21 16:39] LABS: ALT (SGPT) 42 U/L (0-50); AST (SGOT) 37 U/L (17-59); Albumin 4.2 g/dl (3.5-5.0); Alkaline Phosphatase 72 U/L (38-126); Blood Urea Nitrogen 32 mg/dl (9-20); Carbon Dioxide 31 mmol/L (22-30); Glucose 211 mg/dl (70-99); Total Protein 6.9 g/dl (6.3-8.2); eGFR 59.84
[2025-01-21 16:49] LABS: Chloride 99 mmol/L (98-107); Potassium 5.3 mmol/L (3.5-5.1); Sodium 141 mmol/L (135-145)
[2025-01-21 17:26] VITALS: BMI 49.2
[2025-01-21 17:27] VITALS: BP 126/74
--- NOTE | 2025-01-21 18:04 | ED.GENMED ---
History of Present Illness
General
Chief Complaint: Breathing Problem
Source: patient
Exam Limitations: none
Time Seen by Provider: 01/21/25 17:44
History of Present Illness
History of Present Illness:
69-year-old male with history of coronary arteries, CHF, COPD on 40 of Lasix every Tuesday and 20 of Lasix every other day presents with increased shortness of breath. He was thought initially to have his flare of his COPD and
started on prednisone. He is now on 50 mg of prednisone since last week. He notes 10 pound weight gain in 3 days as well as leg swelling. He describes orthopnea. He denies chest pain. No fever. No other complaints at this time
Past History
Past History
ED Past Medical History: Arrthythmia, CAD, HTN and Hypercholesterolemia
ED Past Surgical History: Cardiac and Tonsilectomy
Social History
Tobacco: Former smoker
Alcohol: None
Drug: None
Personal: Other
Living: with family
Employment: Employed
Family History
Family History: Unable to obtain
Phy Exam
Physical Exam
Physical Exam:
General: Well-appearing male with increased work of breathing
HEENT: Normocephalic atraumatic
Heart: Regular rate and rhythm
Lungs: Diminished breath sounds at the left base
Extremities: Significant pitting edema bilateral lower extremities
Skin is warm no rash
Scores
Heart Failure Risk
Heart Failure Risk Score: Not Applicable
Course
Orders/Labs/Results
Orders:
Orders
01/21/25 15:46
Electrocardiogram (*1) Urgent
Reason for Study: Shortness of Breath
EKG- Treatment ONCE
01/21/25 15:56
Comprehensive Metabolic Panel Urgent
NT-proBNP Urgent
Troponin I Urgent
01/21/25 15:57
Complete Blood Count/With Diff Urgent
01/21/25 18:03
CR Chest - 2 Views Urgent
Comment:
Reason For Exam: sob
01/21/25 19:46
Furosemide [Lasix] 60 mg IV NOW STA
Abnormal Lab Results
01/21/25 01/21/25
15:56 15:57
RBC 4.51 L 10^6/uL
(4.70-6.10)
MCV 98.0 H fL
(80.0-94.0)
MCH 32.6 H pg
(27.0-31.0)
RDW 14.6 H %
(11.5-14.5)
MPV 10.7 H fL
(7.4-10.4)
Absolute Neuts (auto) 7.1 H 10^3/uL
(1.4-6.5)
Absolute Lymphs (auto) 0.8 L 10^3/uL
(1.2-3.4)
Neutrophils % 88.0 H %
(42.2-75.2)
Lymphocytes % 9.8 L %
(20.5-51.1)
Monocytes % 1.5 L %
(1.7-9.3)
Potassium 5.3 H mmol/L
(3.5-5.1)
Carbon Dioxide 31 H mmol/L
(22-30)
BUN 32 H mg/dl
(9-20)
Glucose 211 H mg/dl
(70-99)
01/21/25 15:57
01/21/25 15:56
Vital Signs
Initial and Last Documented VS:
Initial Vital Signs
Temp Pulse Resp BP Pulse Ox
98.3 F 71 24 154/74 94
01/21/25 15:42 01/21/25 15:42 01/21/25 15:42 01/21/25 15:42 01/21/25 15:42
Last Documented Vital Signs
Temp Pulse Resp BP Pulse Ox
98.1 F 63 22 130/65 95
01/21/25 17:27 01/21/25 19:00 01/21/25 19:00 01/21/25 19:00 01/21/25 19:00
MDM/Problems Addressed
Differential Diagnosis Includes:
Shortness of breath. Patient does appear volume overloaded. Consider CHF flare versus COPD exacerbation versus pneumonia. He notes a 10 pound weight gain in 3 days. His last admission at the end of October he weighed 148 kg. He currently weighs
160 kg.
Chest x-ray pending. Anticipate the need for admission for CHF flare. BNP is elevated
*Critical Care Note
Total Time (30-74mins, 75-104mins- exclusive of procedures): Not Applicable
Update Note
Update Note:
Reviewed labs and chest x-ray. Patient looks volume overloaded. He is up 12 kg from last admission a couple months ago. He notes a 10 pound weight gain in 3 days. I suspect CHF as a source of his shortness of breath. Lasix ordered. Admitted to
hospital
ED Attending Note
-
Portions of this chart may have been created with voice recognition software.� Occasional wrong word or��sound alike� substitutions may have occurred due to the inherent limitations of voice recognition software.
Discharge Plan
Departure
Patient Disposition: Admit
Date of Disposition: 01/21/25
Time of Disposition: 19:48
Presentation/result/management discussed w/ accepting MD/DO: Hospitalist
Discharge Problem:
CHF (congestive heart failure)
Prescriptions:
No Action
losartan 25 MG tablet
25 mg PO DAILY
Eliquis 5 MG tablet
5 mg PO BID
atorvastatin 80 MG tablet
80 mg PO DAILY
metoprolol succinate 25 MG tablet extended release 24 hr
25 mg PO BID
furosemide 40 MG tablet
40 mg PO MOWEFR@0800,1700
amiodarone 200 mg Tablet
200 mg PO DAILY Qty: 0
furosemide [Lasix] 40 mg Tablet
40 mg PO SUTUTHSA@0800
acetaminophen [Tylenol] 325 mg Tablet
650 mg PO Q4HPRN PRN (Reason: mild pain)
aspirin 81 mg Tablet,Delayed Release (Dr/Ec)
81 mg PO DAILY
spironolactone 25 mg Tablet
12.5 mg PO DAILY
guaifenesin 100 mg/5 mL Liquid
200 mg PO Q4HPRN PRN (Reason: COUGH)
levalbuterol tartrate [Xopenex HFA] 45 mcg/actuation Hfa Aerosol Inhaler
2 inh INHALATION R Q6HPRN PRN (Reason: SOB)
ipratropium-albuterol 0.5 mg-3 mg(2.5 mg base)/3 mL solution for nebulization
3 ml inhalation R Q4HPRN PRN (Reason: wheezing)
oseltamivir 75 mg Capsule
75 mg PO BID 4 Days Qty: 8 0RF
benzonatate 100 mg Capsule
200 mg PO TIDPRN PRN (Reason: cough) Qty: 30 0RF
doxycycline hyclate 100 mg Capsule
100 mg PO Q12 5 Days Qty: 10 0RF
Referrals:
Zuhair Cobb MD [Family Provider] -
Interventions
Interventions:
*Risk Screen - Suicide Last Done: 01/21/25 15:42
*General Assessment Last Done: 01/21/25 17:32
*Neglect/Abuse Screening Last Done: 01/21/25 17:32
*ED- Fall Risk Assessment Last Done: 01/21/25 17:31
*ED COVID-19 Vaccine History Last Done: 01/21/25 17:31
Discharge Date and Time
Print Language: HEBREW
[2025-01-21 19:00] VITALS: BP 130/65
[2025-01-21 20:00] VITALS: BP 120/56
[2025-01-21] MEDS: LASIX 60 MG IV (20:16)
--- NOTE | 2025-01-21 21:28 | HPS.HSE ---
Family Physician
-
Family Physician: Zuhair Cobb
Chief Complaint
-
Cough / SOB
History of Present Illness
Patient is a 69y M with PMH significant for ASCVD, CHF and morbid obesity who presents to ED complaining of SOB. Patient reports long history of chronic / recurrent bronchitis. He is a never-smoker. He works in [employer] and does have
exposure to environmental dust / debris / etc. Patient states that he started with his 'usual' bronchitis symptoms on Tuesday. He reports cough that was minimally productive. He noted dyspnea with activity that has steadily increased over the
past 5 days. Patient denies any fevers / chills. No GI symptoms. No known sick contacts.
Patient was seen by his PCP on and started on doxycycline and prednisone 40mg daily. He was seen by Pulmonary the following day and his prednisone was increased to 50mg daily.
Patient reports no significant improvement in his symptoms.
He was seen for re-eval by his PCP today and sent to the ED for evaluation.
Patient has chronic LE edema but denies any recent change.
Medical History
Past Medical History
Past Medical History: Reports Other
Additional Past Medical History:
Coronary Artery Disease s/p PCI x 2
Chronic HFrEF
Paroxysmal Atrial Fibrillation
Essential Hypertension
Hyperlipidemia
CKD Stage II
Obstructive Sleep Apnea
Morbid Obesity
Past Surgical History: Reports Other
Additional Past Surgical History:
PCI x 2
Left Knee Replacement
Left Hip Replacement
Social History
Tobacco: Non-smoker
Alcohol: Former (Sober for over 30 years)
Drug: None
Family History
Family History: Not pertinent
Allergies / Home Medications
Allergies reflects when Allergies were last updated in [employer].
Home Medications with original date entered in [employer]
Allergy/Medication List:
Allergies
Allergy/AdvReac Type Severity Reaction Status Date / Time
No Known Allergies Allergy Verified 01/21/25 15:41
Home Medications
apixaban 5 mg tablet (Eliquis) 5 mg PO BID Blood clot prevention/tx 09/29/21
atorvastatin 80 mg tablet 80 mg PO DAILY High cholesterol 09/29/21
losartan 25 mg tablet 25 mg PO DAILY Blood pressure 09/29/21
metoprolol succinate 25 mg tablet,extended release 24 hr 25 mg PO BID Heart disease/condition 01/28/22
amiodarone 200 mg tablet 200 mg PO DAILY Heart disease/condition ##0 02/26/22
furosemide 40 mg tablet 80 mg PO MOWEFR Fluid retention/Swelling 02/26/22
acetaminophen 325 mg tablet (Tylenol) 650 mg PO Q4HPRN PRN mild pain 10/12/24
aspirin 81 mg tablet,delayed release 81 mg PO DAILY Blood Clot Prevention/Tx 10/12/24
furosemide 40 mg tablet (Lasix) 40 mg PO SUTUTHSA Fluid Retention/Swelling 10/12/24
spironolactone 25 mg tablet 12.5 mg PO DAILY Fluid Retention/Swelling 10/12/24
guaifenesin 100 mg/5 mL oral liquid 200 mg PO Q4HPRN PRN COUGH 11/12/24
ipratropium 0.5 mg-albuterol 3 mg (2.5 mg base)/3 mL nebulization soln 3 ml inhalation R Q4HPRN PRN wheezing 11/12/24
levalbuterol tartrate 45 mcg/actuation aerosol inhaler (Xopenex HFA) 2 inh inhalation R Q6HPRN PRN SOB 11/12/24
benzonatate 100 mg capsule 200 mg (2 x 100 mg) PO TIDPRN PRN cough #30 caps 11/13/24
doxycycline hyclate 100 mg capsule 100 mg PO Q12 5 days #10 caps 11/13/24
fluticasone fur. 200 mcg-umeclid 62.5 mcg-vilant 25 mcg inhalat.powder (Trelegy Ellipta) 1 inh inhalation R DAILY 01/21/25
prednisone 50 mg tablet 50 mg PO DAILY 01/21/25
Review of Systems
-
History Source: Patient
A 12 point ROS was completed and negative except as noted: Yes
Constitutional: Reports Fatigue; Denies Fever or Chills
EENT: Denies Sore Throat
Respiratory: Reports Cough and Trouble Breathing
Cardiac: Denies Chest Pain or Palpitations
Abdomen/GI: Denies Abdominal Pain, Nausea, Vomiting or Diarrhea
: Denies Dysuria or Frequency
Musculoskeletal: Reports Edema; Denies Joint Pain
Neurological: Denies Dizzy or Headache
Psych: Denies Depression or Anxiety
Physical Exam
Vital Signs
Vital Signs
Temp Pulse Resp BP Pulse Ox
98.1 F 65 17 120/56 97
01/21/25 17:27 01/21/25 20:16 01/21/25 20:15 01/21/25 20:16 01/21/25 20:15
Physical Exam
General: Other (69y M in no acute distress.)
HEENT: Moist mucous membranes and Other (Thick neck.)
Respiratory: Other (Coarse rhonchi bilateral lower lung ocampo. No wheezing or rales.)
Cardiac: S1/S2 and Regular Rhythm; No Murmur
GI: Non Tender, Non Distended, Normal Bowel Sounds and Other (Obese)
Musculoskeletal: No Clubbing, No Cyanosis and Other (2-3+ pitting edema b/l LEs.)
Neuro: AO x 3
Laboratory Results
-
01/21/25 15:57
01/21/25 15:56
Laboratory Results
Total Bilirubin 1.0 mg/dl (0.2-1.3) 01/21/25 15:56
AST 37 U/L (17-59) 01/21/25 15:56
ALT 42 U/L (0-50) 01/21/25 15:56
Alkaline Phosphatase 72 U/L (38-126) 01/21/25 15:56
Troponin I 0.017 ng/ml 01/21/25 15:56
Impression/Plan
-
A/P: Patient is a 69y M with PMH significant for ASCVD, CHF and obesity who presents to ED complaining of SOB and cough.
Acute / Chronic Bronchitis
- Admit for further evaluation and treatment.
- No improvement despite outpatient abx and prednisone.
- CXR without discreet infiltrate / pneumonia. Afebrile, no leukocytosis.
- Continue doxycycline and add ceftriaxone.
- Nebs ATC and PRN.
- Chest PT / supportive care.
- Follow for clinical improvement.
- Observe off of further steroids for now as no active wheezing on exam.
- Check COVID / Flu status.
Acute on Chronic HFrEF
- Edema on exam and increased BNP. Recent steroids x 5 days.
- Likely some component of HF exacerbation.
- Change Lasix to IV for now. Follow I/Os, daily weights, etc.
- Echo done last in 05/2024) with LVEF = 40-45%.
ASCVD
Paroxysmal Atrial Fibrillation
- Stable. Continue current CV med regimen.
- Continue Eliquis for stroke risk reduction.
Benign Hypertension
- Stable. Continue home medications.
LEODAN
Morbid Obesity due to excess calories
- Affects all aspects of care.
- Continue PAP therapy at HS.
- Encourage healthy diet and increased activity with goal of weight loss.
DVT Prophylaxis: On Eliquis
Code Status: Full
[2025-01-21 22:02] VITALS: BP 121/53
[2025-01-21 22:33] LABS: COVID-19 Antigen Negative (Negative)
[2025-01-22] VITALS (7 sets, daily range): BP systolic 124–149; BP diastolic 61–78; PULSE 90; BMI 46.6
--- NOTE | 2025-01-22 00:59 | PTCARENOTE ---
Patient arrived from the ED via stretcher. Patient ambulated into the room. Patient AAOx3, VSS. Oriented to the room, updated on plan of care. Call ahuja is within reach.
[2025-01-22] MEDS: ROCEPHIN IV (02:24)
[2025-01-22] MEDS: TESSALON PERLES 200 MG PO ×3 (02:24→21:54)
[2025-01-22] MEDS: STERILE WATER FOR INJECTION 10 ML IV (02:24)
[2025-01-22] MEDS: ROCEPHIN 1000 MG IV (02:24)
[2025-01-22] MEDS: DUONEB 3 ML INH ×3 (07:27→19:02)
[2025-01-22 07:44] LABS: Hematocrit 41.5 % (39.0-52.0); Hemoglobin 13.8 g/dL (13.0-18.0); Mean Corp Hgb Conc. 33.3 g/dL (33.0-37.0); Mean Corpuscular Hgb 32.5 pg (27.0-31.0); Mean Corpuscular Volume 97.6 fL (80.0-94.0); Platelet Count 180 10^3/uL (130-400); Red Blood Cell Count 4.25 10^6/uL (4.70-6.10); Red Cell Dist. Width 14.4 % (11.5-14.5); White Blood Cell Count 8.2 10^3/uL (4.8-10.8)
[2025-01-22 08:04] LABS: Blood Urea Nitrogen 34 mg/dl (9-20); Calcium 9.3 mg/dl (8.4-10.2); Carbon Dioxide 33 mmol/L (22-30); Chloride 99 mmol/L (98-107); Estimated Creatinine Clearance 81 ml/min; Glucose 125 mg/dl (70-99); Potassium 3.7 mmol/L (3.5-5.1); Sodium 140 mmol/L (135-145); eGFR 59.84
[2025-01-22] MEDS: ASPIR LOW (ENTERIC COATED) 81 MG PO (08:13)
[2025-01-22] MEDS: ELIQUIS 5 MG PO ×2 (08:13→20:32)
[2025-01-22] MEDS: VIBRAMYCIN 100 MG PO ×2 (08:13→20:32)
[2025-01-22] MEDS: LIPITOR 80 MG PO (08:13)
[2025-01-22] MEDS: LASIX 40 MG IV ×2 (08:13→15:01)
[2025-01-22] MEDS: PACERONE 200 MG PO (08:14)
[2025-01-22] MEDS: TOPROL XL 25 MG PO ×2 (08:17→20:32)
--- NOTE | 2025-01-22 08:59 | CON.PUL ---
Consultation
Consultation Request
Date/Time Consultation Requested: 01/22/2025
Date/Time Consultation Performed: 01/22/2025
Requesting Provider: Luis Dobson
Performing Provider: Miguel Moreira
Reason for Consultation: Shortness of breath
Medical History
-
Chief Complaint: Cough, shortness of breath
History of Present Illness:
Patient is a very pleasant 69-year-old gentleman with known history of congestive heart failure, coronary artery disease, morbid obesity and severe sleep apnea who presents to the emergency room for shortness of breath. Patient has an episode of
influenza A bronchitis in October requiring hospitalization. Patient reports that he gradually improved but his cough is somewhat persisted. He was seen in pulmonary clinic last week and was felt to have asthma exacerbation and was started on
prednisone as well as Trelegy. Patient reports minimal improvement since and ended up back in the hospital. He was noted to be quite wheezy, volume overloaded and was admitted to the hospital, started on IV diuresis along with bronchodilators.
Pulmonary consultation was requested for further input. Patient denies any fever or chills. Reports clear expectoration.
Medical History
Additional Past Medical History:
Coronary Artery Disease s/p PCI x 2
Chronic HFrEF
Paroxysmal Atrial Fibrillation
Essential Hypertension
Hyperlipidemia
CKD Stage II
Obstructive Sleep Apnea
Morbid Obesity
Past Surgical History: Reports Other
Additional Past Surgical History:
PCI x 2
Left Knee Replacement
Left Hip Replacement
Social History
Tobacco: Non-smoker
Alcohol: Former (Sober for over 30 years)
Drug: None
Family History
Family History: Not pertinent
Allergies / Home Medications-:
Allergies reflects when Allergies were last updated in [facility].
Allergies / Home Medications
Allergies
Allergy/AdvReac Type Severity Reaction Status Date / Time
No Known Allergies Allergy Verified 01/21/25 15:41
Home Medications
�Medication �Instructions �Recorded �Confirmed �Last Taken �Type
apixaban 5 mg tablet (Eliquis) 5 mg PO BID Blood clot 09/29/21 01/21/25 11/12/24 History
prevention/tx
atorvastatin 80 mg tablet 80 mg PO DAILY High cholesterol 09/29/21 01/21/25 11/12/24 History
losartan 25 mg tablet 25 mg PO DAILY Blood pressure 09/29/21 01/21/25 11/12/24 History
metoprolol succinate 25 mg 25 mg PO BID Heart 01/28/22 01/21/25 11/12/24 History
tablet,extended release 24 hr disease/condition
amiodarone 200 mg tablet 200 mg PO DAILY Heart 02/26/22 01/21/25 11/12/24 History
disease/condition ##0
furosemide 40 mg tablet 80 mg PO MOWEFR Fluid 02/26/22 01/21/25 11/12/24 History
retention/Swelling
acetaminophen 325 mg tablet 650 mg PO Q4HPRN PRN mild pain 10/12/24 01/21/25 11/12/24 History
(Tylenol)
aspirin 81 mg tablet,delayed 81 mg PO DAILY Blood Clot 10/12/24 01/21/25 11/12/24 History
release Prevention/Tx
furosemide 40 mg tablet (Lasix) 40 mg PO SUTUTHSA Fluid 10/12/24 01/21/25 11/11/24 History
Retention/Swelling
spironolactone 25 mg tablet 12.5 mg PO DAILY Fluid 10/12/24 01/21/25 11/12/24 History
Retention/Swelling
guaifenesin 100 mg/5 mL oral liquid 200 mg PO Q4HPRN PRN COUGH 11/12/24 01/21/25 11/10/24 History
ipratropium 0.5 mg-albuterol 3 mg 3 ml inhalation R Q4HPRN PRN 11/12/24 01/21/25 Unknown History
(2.5 mg base)/3 mL nebulization wheezing
soln
levalbuterol tartrate 45 2 inh inhalation R Q6HPRN PRN SOB 11/12/24 01/21/25 Unknown History
mcg/actuation aerosol inhaler
(Xopenex HFA)
benzonatate 100 mg capsule 200 mg (2 x 100 mg) PO TIDPRN PRN 11/13/24 01/21/25 Unknown Rx
cough #30 caps
doxycycline hyclate 100 mg capsule 100 mg PO Q12 5 days #10 caps 11/13/24 01/21/25 Unknown Rx
fluticasone fur. 200 mcg-umeclid 1 inh inhalation R DAILY 01/21/25 01/21/25 Unknown History
62.5 mcg-vilant 25 mcg
inhalat.powder (Trelegy Ellipta)
prednisone 50 mg tablet 50 mg PO DAILY 01/21/25 01/21/25 Unknown History
Review of Systems
-
Hematologic/Lymphatic: Other (All 14 systems reviewed and negative except as stated above in the history of present illness.)
Vitals / Labs / Diagnostic Testing
Vital Signs
Temp Pulse Resp BP Pulse Ox
98.1 F 80 14 140/74 95
01/22/25 03:41 01/22/25 07:36 01/22/25 07:36 01/22/25 08:17 01/22/25 07:36
Lab Data
01/22/25 06:54
01/22/25 06:54
Microbiology
01/21/25 22:04 Nasal Swab Influenza Types A & B ([facility]) - Final
Negative for Influenza A & B, NAAT
Negative results must be combined with clinical observations
and patient history.
Nucleic Acid Amplification test (NAAT)performed on the
[email or web address] platform.
Diagnostic Testing:
Physical Exam
-
HEENT: Normocephalic
Cardiovascular: S1/S2 and Peripheral Edema (2-3+ bilaterally )
Respiratory: Wheeze
GI: Soft and Non Distended
Neurology: Awake and Alert
Skin: Warm
General: Comfortable
Assessment
-
#1. Acute bronchitis with suspected asthma exacerbation. Quite wheezy on exam, also quite volume overloaded.
-Continue scheduled DuoNeb 4 times daily, add budesonide twice a day nebulized
-Solu-Medrol IV 40 mg every 12
-Start montelukast 10 mg nightly in view of significant symptoms of allergic rhinitis
-Can discontinue ceftriaxone. Continue doxycycline for possible bronchitis. No infiltrates noted on imaging
-Will need full pulmonary function testing along with 6-minute walk test as outpatient once recovered from current episode. No parenchymal changes suggestive of amiodarone toxicity noted.
#2. Severe obstructive sleep apnea with morbid obesity
-Continue nightly CPAP therapy
-With his body habitus, he likely has a component of EDAC (expiratory dynamic airway collapse) contributing to his symptoms
-Component of restrictive pattern in addition to obstructive pattern on spirometry is likely related to morbid obesity, needs lung volumes and full pulmonary function testing as outpatient.
#3. Acute on chronic heart failure with reduced ejection fraction, EF 40 to 45%. Pro-BNP 2129
-Patient quite volume loaded on exam, agree with IV Lasix per primary team
-Normal RV function on last ECHO in 2023. PAP could not be calculated for lack of TR
#4. History of paroxysmal atrial fibrillation
-Continue anticoagulation with Eliquis. Also on Amiodarone
#5. h/o CAD, s/p PCI in 2019 (proximal LAD)
-on ASA, Eliquis, Statins, metoprolol
Pulmonary team will continue to follow
Patient will resume outpatient follow-up with Dr. John after discharge
Total time spent on this consultation/encounter _62___ minutes which includes review of history, physical exam, medications, laboratory data, personal review of imaging, extensive review of outpatient records, discussion with care team and
respiratory therapy.
Data:
Spirometry in office, 01/2025. FEV1 32%, FVC 38%, FEV1/FVC of 0.6. Suggestive of mixed obstructive and restrictive disease
ECHO 05/2024: Normal left ventricular chamber size. Mildly reduced left ventricular systolic
function. Left ventricular ejection fraction is 40-45% by Lobato's method.
The apex and distal septum are hypokinetic. Mild concentric left ventricular
hypertrophy. Stage I diastolic dysfunction suggestive of abnormal relaxation.
Normal right ventricular size. Normal right ventricular systolic function.
Mildly dilated left atrium.
No significant valvular disease.
When compared to prior study on 11/09/2022, there is no significant change
CT Chest 10/2024: No active cardiopulmonary disease
Atherosclerosis with coronary artery calcification
There is mild pleural thickening at the posterior aspect of both lung bases
The lungs are otherwise clear
Cardiac Cath 06/2020: 100% occluded Proximal LAD, s/p stenting
[2025-01-22] MEDS: PULMICORT INH (11:00)
[2025-01-22] MEDS: SOLU-MEDROL PF 40 MG IV ×2 (11:11→21:54)
--- NOTE | 2025-01-22 12:54 | W.PN.HOSP.TC ---
Today's Communication/Plan
-
Assessment / Plan
Assessment / Plan
NAD
Scleral Anicteric
DMM
No JVD
Bibasilar crackles
RRR, S1/S2
Obese, soft, NT, BS+
Warm, Dry
Bilateral lower extremity peripheral pitting edema to self along with abdominal distention which she agrees with
AAOx3
Calm
Acute on chronic HFrEF with known LVEF of 40 to 45%
Continue diuretics
Follow I's and O's
Daily weight
Keep K greater than 4
Keep Mg greater than 2
Monitor on telemetry
Continue MRA, ARB, BB and diuretic
If blood pressure allows will initiate SGLT2 inhibitor if no history of UTI and if renal function will allow
Atrial fibrillation, Likely paroxysmal as currently in sinus rhythm
Continue amiodarone and Eliquis
Acute on chronic bronchitis
MDIs, steroids, pulmonary consult, goal SpO2 greater than 80 to 92%
Will need outpatient pulmonary follow-up
Hypertension
Continue antihypertensive
LEODAN
CPAP at bedtime
Morbid obesity
Dietary and exercise modification
Outpatient bariatric surgery follow-up
May be considered for GLP-1
Anticipated Discharge: > 48 hours
Subjective/Interval History
-
Date of Service: January 22, 2025
Was seen and examined no new complaints. No acute overnight events.
Objective Data
-
Labs:
Laboratory Results
01/22/25
06:54
WBC 8.2
Hgb 13.8
Hct 41.5
Plt Count 180
Sodium 140
Potassium 3.7 D
Chloride 99
Carbon Dioxide 33 H
BUN 34 H
Creatinine 1.3
Glucose 125 H
Calcium 9.3
Vital Signs:
Vital Signs
Temp Pulse Resp BP Pulse Ox
97.7 F 80 14 140/74 95
01/22/25 07:35 01/22/25 07:36 01/22/25 07:36 01/22/25 08:17 01/22/25 07:36
I&O
01/21/25 01/22/25 01/23/25
06:59 06:59 06:59
Intake Total 480 / 480
Balance 480 / 480
--- NOTE | 2025-01-22 13:02 | CM ---
CM following re: discharge planning.
Reviewed pt's chart, met with pt.
Pt is a 69 year old male, admitted with primary dx of CHF.
Pt reports he lives with SO Jodi in a 2[place], no steps to enter, has a daughter who is 33 year old and pr stated he did not hear from her for the past 32 years. 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
PCP: Esvin Bliss
Pharmacy: [facility].
D/C plan; hoe with anticipated no needs. SO to transprt.
CM will follow with discharge plan updates as hospitalization progresses
[2025-01-22] MEDS: DUONEB INH (15:24)
[2025-01-22] MEDS: SINGULAIR 10 MG PO (16:56)
[2025-01-22] MEDS: PULMICORT 0.5 MG INH (19:02)
[2025-01-22] MEDS: STERILE WATER FOR INJECTION IV (19:14)
[2025-01-22 21:46] LABS: TSH Reflex To Free T4 3.04 uIU/ml (0.47-4.68)
[2025-01-23] VITALS (7 sets, daily range): BP systolic 129–158; BP diastolic 58–82; PULSE 73; BMI 45.7
[2025-01-23] MEDS: PULMICORT 0.5 MG INH ×2 (07:17→19:16)
[2025-01-23] MEDS: DUONEB 3 ML INH ×4 (07:17→19:16)
[2025-01-23] MEDS: LASIX 40 MG IV ×2 (08:06→16:55)
[2025-01-23] MEDS: VIBRAMYCIN 100 MG PO ×2 (08:07→19:59)
[2025-01-23] MEDS: LIPITOR 80 MG PO (08:07)
[2025-01-23] MEDS: FARXIGA 10 MG PO (08:07)
[2025-01-23] MEDS: ELIQUIS 5 MG PO ×2 (08:07→19:59)
[2025-01-23] MEDS: TOPROL XL 25 MG PO ×2 (08:08→19:59)
[2025-01-23] MEDS: ASPIR LOW (ENTERIC COATED) 81 MG PO (08:08)
[2025-01-23] MEDS: PACERONE 200 MG PO (08:08)
[2025-01-23 09:36] LABS: Hematocrit 43.9 % (39.0-52.0); Hemoglobin 14.9 g/dL (13.0-18.0); Mean Corp Hgb Conc. 33.9 g/dL (33.0-37.0); Mean Corpuscular Hgb 31.9 pg (27.0-31.0); Mean Platelet Volume 10.5 fL (7.4-10.4); Platelet Count 200 10^3/uL (130-400); Red Blood Cell Count 4.67 10^6/uL (4.70-6.10); Red Cell Dist. Width 14.1 % (11.5-14.5)
[2025-01-23 09:47] LABS: Blood Urea Nitrogen 43 mg/dl (9-20); Calcium 9.6 mg/dl (8.4-10.2); Carbon Dioxide 28 mmol/L (22-30); Chloride 97 mmol/L (98-107); Estimated Creatinine Clearance 75 ml/min; Glucose 268 mg/dl (70-99); Potassium 4.4 mmol/L (3.5-5.1); Sodium 138 mmol/L (135-145); eGFR 54.75
[2025-01-23] MEDS: SOLU-MEDROL PF 40 MG IV ×2 (10:58→23:37)
--- NOTE | 2025-01-23 11:24 | CM ---
CM following re: discharge planning.
Reviewed pt's chart, met with pt.
Pt lives with SO Jodi in a 2[place], no steps to enter, has a daughter who is 33 year old and pr stated he did not hear from her for the past 32 years. 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
D/C plan; home with anticipated no needs. SO to transport.
CM will follow with discharge plan updates as hospitalization progresses
--- NOTE | 2025-01-23 13:14 | W.PN.HOSP.TC ---
Today's Communication/Plan
-
Assessment / Plan
Assessment / Plan
NAD
Scleral Anicteric
DMM
No JVD
Bibasilar crackles
RRR, S1/S2
Obese, soft, NT, BS+
Warm, Dry
Bilateral lower extremity peripheral pitting edema to self along with abdominal distention which she agrees with
AAOx3
Calm
Acute on chronic HFrEF with known LVEF of 40 to 45%
Continue diuretics
Follow I's and O's
Daily weight
Keep K greater than 4
Keep Mg greater than 2
Monitor on telemetry
Continue MRA, ARB, BB and diuretic
If blood pressure allows will initiate SGLT2 inhibitor if no history of UTI and if renal function will allow
Atrial fibrillation, Likely paroxysmal as currently in sinus rhythm
Continue amiodarone and Eliquis
Acute on chronic bronchitis
MDIs, steroids, pulmonary consult, goal SpO2 greater than 80 to 92%
Will need outpatient pulmonary follow-up
Hypertension
Continue antihypertensive
LEODAN
CPAP at bedtime
Morbid obesity
Dietary and exercise modification
Outpatient bariatric surgery follow-up
May be considered for GLP-1
Anticipated Discharge: 24 - 48 hours
Subjective/Interval History
-
Date of Service: January 23, 2025
Seen and examined. No new complaints. No acute overnight events.
Objective Data
-
Labs:
Laboratory Results
01/23/25
09:23
WBC 13.0 H
Hgb 14.9
Hct 43.9
Plt Count 200
Sodium 138
Potassium 4.4
Chloride 97 L
Carbon Dioxide 28
BUN 43 H
Creatinine 1.4 H
Glucose 268 H
Calcium 9.6
Vital Signs:
Vital Signs
Temp Pulse Resp BP Pulse Ox
97.5 F 71 20 129/58 94
01/23/25 11:07 01/23/25 11:07 01/23/25 11:07 01/23/25 11:07 01/23/25 11:07
I&O
01/22/25 01/23/25 01/24/25
06:59 06:59 06:59
Intake Total 480 / 480 1080 / 1080
Output Total 700 / 700
Balance 480 / 480 380 / 380
--- NOTE | 2025-01-23 14:38 | W.PN.PUL3 ---
Today's Communication / Plan
-
- Continue current dose of steroids, bronchodilator and diuretics
Assessment
-
Patient is a very pleasant 69-year-old gentleman with known history of congestive heart failure, coronary artery disease, morbid obesity and severe sleep apnea who presents to the emergency room for shortness of breath. Patient has an episode of
influenza A bronchitis in October requiring hospitalization. Patient reports that he gradually improved but his cough is somewhat persisted. He was seen in pulmonary clinic last week and was felt to have asthma exacerbation and was started on
prednisone as well as Trelegy. Patient reports minimal improvement since and ended up back in the hospital. He was noted to be quite wheezy, volume overloaded and was admitted to the hospital, started on IV diuresis along with bronchodilators.
Pulmonary consultation was requested for further input. Patient denies any fever or chills. Reports clear expectoration.
#1. Acute bronchitis with Acute asthma exacerbation. Was Quite wheezy on exam, also quite volume overloaded. Improving
-Continue scheduled DuoNeb 4 times daily, added budesonide twice a day nebulized
-Solu-Medrol IV 40 mg every 12
-Started montelukast 10 mg nightly in view of significant symptoms of allergic rhinitis
-Off ceftriaxone. Continue doxycycline for possible bronchitis. No infiltrates noted on imaging
-Will need full pulmonary function testing along with 6-minute walk test as outpatient once recovered from current episode. No parenchymal changes suggestive of amiodarone toxicity noted.
#2. Severe obstructive sleep apnea with morbid obesity
-Continue nightly CPAP therapy
-With his body habitus, he likely has a component of EDAC (expiratory dynamic airway collapse) contributing to his symptoms
-Component of restrictive pattern in addition to obstructive pattern on spirometry is likely related to morbid obesity, needs lung volumes and full pulmonary function testing as outpatient
-Counseled regarding weight loss and also briefly discussed GLP-1 agents
#3. Acute on chronic heart failure with reduced ejection fraction, EF 40 to 45%. Pro-BNP 2130
-Patient quite volume loaded on exam, agree with IV Lasix per primary team
-Normal RV function on last ECHO in 2023. PAP could not be calculated for lack of TR
#4. History of paroxysmal atrial fibrillation
-Continue anticoagulation with Eliquis. Also on Amiodarone
#5. h/o CAD, s/p PCI in 2019 (proximal LAD)
-on ASA, Eliquis, Statins, metoprolol
Pulmonary team will continue to follow
Patient will resume outpatient follow-up with Dr. John after discharge
Total time spent on this consultation/encounter _32___ minutes which includes review of history, physical exam, medications, laboratory data, personal review of imaging, extensive review of outpatient records, discussion with care team and
respiratory therapy.
Data:
Spirometry in office, 01/2025. FEV1 32%, FVC 38%, FEV1/FVC of 0.6. Suggestive of mixed obstructive and restrictive disease
ECHO 05/2024: Normal left ventricular chamber size. Mildly reduced left ventricular systolic
function. Left ventricular ejection fraction is 40-45% by Lobato's method.
The apex and distal septum are hypokinetic. Mild concentric left ventricular
hypertrophy. Stage I diastolic dysfunction suggestive of abnormal relaxation.
Normal right ventricular size. Normal right ventricular systolic function.
Mildly dilated left atrium.
No significant valvular disease.
When compared to prior study on 11/09/2022, there is no significant change
CT Chest 10/2024: No active cardiopulmonary disease
Atherosclerosis with coronary artery calcification
There is mild pleural thickening at the posterior aspect of both lung bases
The lungs are otherwise clear
Cardiac Cath 06/2020: 100% occluded Proximal LAD, s/p stenting
Subjective Data
-
Date of Service:
Date of Service: January 23, 2025
Subjective:
Patient reporting mild improvement in his symptoms
Review of Systems
Genitourinary: Other (All 14 systems reviewed and negative except as stated above in the history of present illness.)
Objective Data
Data Reviewed
Vital Signs / I&O / Oxygen:
Vital Signs
Temp Pulse Resp BP Pulse Ox
97.5 F 71 20 129/58 94
01/23/25 11:07 01/23/25 11:07 01/23/25 11:07 01/23/25 11:07 01/23/25 11:07
Intake and Output
01/22/25 01/23/25 01/24/25
06:59 06:59 06:59
Intake Total 480 / 480 1080 / 1080
Output Total 700 / 700
Balance 480 / 480 380 / 380
SaO2 94
Physical Exam
General: Comfortable
HEENT: Normocephalic
Cardiovascular: S1-S2 and Peripheral Edema
Respiratory: Wheeze (Diffuse mild B wheezing, improving from 01/22)
GI: Soft and Non Distended
Neurology: Awake and Alert
Skin: Warm
Labs/Micro/Reports
Lab Data
01/23/25 09:23
01/23/25 09:23
Microbiology
01/21/25 22:04 Nasal Swab Influenza Types A & B ([facility]) - Final
Negative for Influenza A & B, NAAT
Negative results must be combined with clinical observations
and patient history.
Nucleic Acid Amplification test (NAAT)performed on the
[employer] platform.
[2025-01-23] MEDS: SINGULAIR 10 MG PO (16:56)
[2025-01-23] MEDS: TESSALON PERLES 200 MG PO (19:59)
[2025-01-24 03:36] VITALS: BP 140/64
[2025-01-24 06:00] VITALS: BMI 45.2
[2025-01-24 06:50] LABS: Hematocrit 43.5 % (39.0-52.0); Hemoglobin 14.7 g/dL (13.0-18.0); Mean Corp Hgb Conc. 33.8 g/dL (33.0-37.0); Mean Corpuscular Hgb 32.5 pg (27.0-31.0); Mean Platelet Volume 10.6 fL (7.4-10.4); Platelet Count 180 10^3/uL (130-400); Red Blood Cell Count 4.53 10^6/uL (4.70-6.10); Red Cell Dist. Width 14.4 % (11.5-14.5); White Blood Cell Count 12.1 10^3/uL (4.8-10.8)
[2025-01-24 07:28] LABS: Blood Urea Nitrogen 48 mg/dl (9-20); Calcium 9.7 mg/dl (8.4-10.2); Carbon Dioxide 30 mmol/L (22-30); Chloride 98 mmol/L (98-107); Estimated Creatinine Clearance 74 ml/min; Glucose 210 mg/dl (70-99); Potassium 4.3 mmol/L (3.5-5.1); Sodium 139 mmol/L (135-145); eGFR 54.75
[2025-01-24] MEDS: DUONEB 3 ML INH ×4 (07:31→19:14)
[2025-01-24] MEDS: PULMICORT 0.5 MG INH ×2 (07:31→19:14)
[2025-01-24 07:55] VITALS: BP 130/76
[2025-01-24] MEDS: LASIX 40 MG IV ×2 (08:52→15:07)
[2025-01-24] MEDS: VIBRAMYCIN 100 MG PO ×2 (08:52→20:37)
[2025-01-24] MEDS: LIPITOR 80 MG PO (08:52)
[2025-01-24] MEDS: ASPIR LOW (ENTERIC COATED) 81 MG PO (08:53)
[2025-01-24] MEDS: PACERONE 200 MG PO (08:53)
[2025-01-24] MEDS: TOPROL XL 25 MG PO ×2 (08:53→20:37)
[2025-01-24] MEDS: ELIQUIS 5 MG PO ×2 (08:53→20:38)
[2025-01-24] MEDS: FARXIGA 10 MG PO (08:53)
[2025-01-24] MEDS: SOLU-MEDROL PF 40 MG IV ×2 (10:39→23:30)
[2025-01-24 11:26] VITALS: BP 136/63
--- NOTE | 2025-01-24 11:57 | CM ---
CM following re: discharge planning.
Reviewed pt's chart, met with pt.
Pt lives with SO Jodi in a 2SH, no steps to enter, has a daughter who is 33 year old and pr stated he did not hear from her for the past 32 years. 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
IMM reviewed, placed on chart, pt has a copy.
D/C plan: home with anticipated no needs. SO to transport.
CM will follow with discharge plan updates as hospitalization progresses
--- NOTE | 2025-01-24 12:19 | W.PN.PUL3 ---
Today's Communication / Plan
-
- Continue current therapy, anticipate transition to prednisone tomorrow and possible discharge
-Outpatient follow-up with Dr. John
Assessment
-
Patient is a very pleasant 69-year-old gentleman with known history of congestive heart failure, coronary artery disease, morbid obesity and severe sleep apnea who presents to the emergency room for shortness of breath. Patient has an episode of
influenza A bronchitis in October requiring hospitalization. Patient reports that he gradually improved but his cough is somewhat persisted. He was seen in pulmonary clinic last week and was felt to have asthma exacerbation and was started on
prednisone as well as Trelegy. Patient reports minimal improvement since and ended up back in the hospital. He was noted to be quite wheezy, volume overloaded and was admitted to the hospital, started on IV diuresis along with bronchodilators.
Pulmonary consultation was requested for further input. Patient denies any fever or chills. Reports clear expectoration.
#1. Acute bronchitis with Acute asthma exacerbation. Was Quite wheezy on exam, also quite volume overloaded. Improving. Eosinophil count 0-300 on different occasions. IgE testing can be pursued as out patient.
-Continue scheduled DuoNeb 4 times daily, added budesonide twice a day nebulized
-Solu-Medrol IV 40 mg every 12, will switch to prednisone tomorrow morning if continues to improve
-Started montelukast 10 mg nightly in view of significant symptoms of allergic rhinitis
-Off ceftriaxone. Continue doxycycline for possible bronchitis. No infiltrates noted on imaging
-Will need full pulmonary function testing along with 6-minute walk test as outpatient once recovered from current episode. No parenchymal changes suggestive of amiodarone toxicity noted.
#2. Severe obstructive sleep apnea with morbid obesity
-Continue nightly CPAP therapy
-With his body habitus, he likely has a component of EDAC (expiratory dynamic airway collapse) contributing to his symptoms
-Component of restrictive pattern in addition to obstructive pattern on spirometry is likely related to morbid obesity, needs lung volumes and full pulmonary function testing as outpatient
-Counseled regarding weight loss and also briefly discussed GLP-1 agents
#3. Acute on chronic heart failure with reduced ejection fraction, EF 40 to 45%. Pro-BNP 2129
-Patient quite volume loaded on exam, agree with IV Lasix per primary team
-Normal RV function on last ECHO in 2023. PAP could not be calculated for lack of TR
-Pedal edema continues to improve
#4. History of paroxysmal atrial fibrillation
-Continue anticoagulation with Eliquis. Also on Amiodarone
#5. h/o CAD, s/p PCI in 2019 (proximal LAD)
-on ASA, Eliquis, Statins, metoprolol
Pulmonary team will continue to follow
Patient will resume outpatient follow-up with Dr. John after discharge
Total time spent on this consultation/encounter _32___ minutes which includes review of history, physical exam, medications, laboratory data, personal review of imaging, extensive review of outpatient records, discussion with care team and
respiratory therapy.
Data:
Spirometry in office, 01/2025. FEV1 32%, FVC 38%, FEV1/FVC of 0.6. Suggestive of mixed obstructive and restrictive disease
ECHO 05/2024: Normal left ventricular chamber size. Mildly reduced left ventricular systolic
function. Left ventricular ejection fraction is 40-45% by Lobato's method.
The apex and distal septum are hypokinetic. Mild concentric left ventricular
hypertrophy. Stage I diastolic dysfunction suggestive of abnormal relaxation.
Normal right ventricular size. Normal right ventricular systolic function.
Mildly dilated left atrium.
No significant valvular disease.
When compared to prior study on 11/09/2022, there is no significant change
CT Chest 10/2024: No active cardiopulmonary disease
Atherosclerosis with coronary artery calcification
There is mild pleural thickening at the posterior aspect of both lung bases
The lungs are otherwise clear
Cardiac Cath 06/2020: 100% occluded Proximal LAD, s/p stenting
Subjective Data
-
Date of Service:
Date of Service: January 24, 2025
Subjective:
Patient sitting in bed, in no acute distress. Reports mild improvement compared to the day before.
Review of Systems
Genitourinary: Other (All 14 systems reviewed and negative except as stated above in the history of present illness.)
Objective Data
Data Reviewed
Vital Signs / I&O / Oxygen:
Vital Signs
Temp Pulse Resp BP Pulse Ox
98.3 F 66 20 136/63 92
01/24/25 11:26 01/24/25 11:26 01/24/25 11:26 01/24/25 11:26 01/24/25 11:46
Intake and Output
01/23/25 01/24/25 01/25/25
06:59 06:59 06:59
Intake Total 1080 / 1080 1080 / 1080 300 / 300
Output Total 700 / 700 1250 / 1250
Balance 380 / 380 -170 / -170 300 / 300
SaO2 92
Physical Exam
General: Comfortable
HEENT: Normocephalic
Cardiovascular: S1-S2 and Peripheral Edema
Respiratory: Wheeze (Improving, no wheezing during my exam this morning)
GI: Soft and Non Distended
Neurology: Awake and Alert
Skin: Warm
Labs/Micro/Reports
Lab Data
01/24/25 06:41
01/24/25 06:41
Microbiology
01/21/25 22:04 Nasal Swab Influenza Types A & B ([facility]) - Final
Negative for Influenza A & B, NAAT
Negative results must be combined with clinical observations
and patient history.
Nucleic Acid Amplification test (NAAT)performed on the
[email or web address] platform.
--- NOTE | 2025-01-24 13:10 | W.PN.HOSP.TC ---
Today's Communication/Plan
-
Assessment / Plan
Assessment / Plan
NAD
Scleral Anicteric
DMM
No JVD
Bibasilar crackles
RRR, S1/S2
Obese, soft, NT, BS+
Warm, Dry
Bilateral lower extremity peripheral pitting edema to self along with abdominal distention which she agrees with
AAOx3
Calm
Acute on chronic HFrEF with known LVEF of 40 to 45%
Continue diuretics
Follow I's and O's
Daily weight
Keep K greater than 4
Keep Mg greater than 2
Monitor on telemetry
Continue MRA, ARB, BB and diuretic
If blood pressure allows will initiate SGLT2 inhibitor if no history of UTI and if renal function will allow
Atrial fibrillation, Likely paroxysmal as currently in sinus rhythm
Continue amiodarone and Eliquis
Acute on chronic bronchitis
MDIs, steroids, pulmonary consult, goal SpO2 greater than 80 to 92%
Will need outpatient pulmonary follow-up
Hypertension
Continue antihypertensive
LEODAN
CPAP at bedtime
Morbid obesity
Dietary and exercise modification
Outpatient bariatric surgery follow-up
May be considered for GLP-1
Anticipated Discharge: 24 - 48 hours
Subjective/Interval History
-
Date of Service: January 24, 2025
Seen and examined. No new complaints. No acute overnight events.
Objective Data
-
Labs:
Laboratory Results
01/24/25
06:41
WBC 12.1 H
Hgb 14.7
Hct 43.5
Plt Count 180
Sodium 139
Potassium 4.3
Chloride 98
Carbon Dioxide 30
BUN 48 H
Creatinine 1.4 H
Glucose 210 H
Calcium 9.7
Vital Signs:
Vital Signs
Temp Pulse Resp BP Pulse Ox
98.3 F 66 20 136/63 92
01/24/25 11:26 01/24/25 11:26 01/24/25 11:26 01/24/25 11:26 01/24/25 11:46
I&O
01/23/25 01/24/25 01/25/25
06:59 06:59 06:59
Intake Total 1080 / 1080 1080 / 1080 300 / 300
Output Total 700 / 700 1250 / 1250
Balance 380 / 380 -170 / -170 300 / 300
[2025-01-24] MEDS: TESSALON PERLES 200 MG PO ×2 (15:01→23:28)
[2025-01-24 15:11] VITALS: BP 110/78
[2025-01-24] MEDS: SINGULAIR 10 MG PO (17:24)
[2025-01-24 19:00] VITALS: BP 132/69
[2025-01-24 23:00] VITALS: BP 131/80
[2025-01-25 03:00] VITALS: BP 136/77
[2025-01-25 06:00] VITALS: BMI 44.5
[2025-01-25 07:23] LABS: Hematocrit 44.2 % (39.0-52.0); Hemoglobin 14.7 g/dL (13.0-18.0); Mean Corp Hgb Conc. 33.3 g/dL (33.0-37.0); Mean Corpuscular Hgb 32.2 pg (27.0-31.0); Mean Corpuscular Volume 96.7 fL (80.0-94.0); Mean Platelet Volume 11.2 fL (7.4-10.4); Platelet Count 177 10^3/uL (130-400); Red Blood Cell Count 4.57 10^6/uL (4.70-6.10); Red Cell Dist. Width 14.4 % (11.5-14.5); White Blood Cell Count 11.6 10^3/uL (4.8-10.8)
[2025-01-25] MEDS: PULMICORT 0.5 MG INH ×2 (07:29→20:16)
[2025-01-25] MEDS: DUONEB 3 ML INH ×4 (07:29→20:16)
[2025-01-25 07:45] LABS: Blood Urea Nitrogen 53 mg/dl (9-20); Calcium 9.5 mg/dl (8.4-10.2); Carbon Dioxide 31 mmol/L (22-30); Chloride 96 mmol/L (98-107); Estimated Creatinine Clearance 69 ml/min; Glucose 224 mg/dl (70-99); Potassium 4.3 mmol/L (3.5-5.1); Sodium 139 mmol/L (135-145)
[2025-01-25 07:55] VITALS: BP 153/67
[2025-01-25] MEDS: FARXIGA 10 MG PO (08:10)
[2025-01-25] MEDS: LIPITOR 80 MG PO (08:10)
[2025-01-25] MEDS: VIBRAMYCIN 100 MG PO ×2 (08:10→19:54)
[2025-01-25] MEDS: ASPIR LOW (ENTERIC COATED) 81 MG PO (08:10)
[2025-01-25] MEDS: ELIQUIS 5 MG PO ×2 (08:10→19:55)
[2025-01-25] MEDS: TOPROL XL 25 MG PO ×2 (08:10→19:54)
[2025-01-25] MEDS: LASIX 40 MG IV ×2 (08:12→15:44)
[2025-01-25] MEDS: PACERONE 200 MG PO (08:12)
[2025-01-25] MEDS: DELTASONE 40 MG PO (09:35)
--- NOTE | 2025-01-25 10:53 | W.PN.PUL3 ---
Today's Communication / Plan
-
-DC Solu-Medrol, start prednisone 40 mg daily
-Continue DuoNeb and budesonide as scheduled, plan to transition to Trelegy at discharge
-Continue IV diuresis for another day
-Anticipate discharge
Assessment
-
Patient is a very pleasant 69-year-old gentleman with known history of congestive heart failure, coronary artery disease, morbid obesity and severe sleep apnea who presents to the emergency room for shortness of breath. Patient has an episode of
influenza A bronchitis in October requiring hospitalization. Patient reports that he gradually improved but his cough is somewhat persisted. He was seen in pulmonary clinic last week and was felt to have asthma exacerbation and was started on
prednisone as well as Trelegy. Patient reports minimal improvement since and ended up back in the hospital. He was noted to be quite wheezy, volume overloaded and was admitted to the hospital, started on IV diuresis along with bronchodilators.
Pulmonary consultation was requested for further input. Patient denies any fever or chills. Reports clear expectoration.
#1. Acute bronchitis with Acute asthma exacerbation. Was Quite wheezy on exam, also quite volume overloaded. Improving. Eosinophil count 0-300 on different occasions. IgE testing can be pursued as out patient.
-Continue scheduled DuoNeb 4 times daily, continue budesonide twice a day nebulized
-Has been on Solu-Medrol 40 mg IV twice daily, switch to prednisone 40 mg daily today
-Continue montelukast 10 mg nightly in view of significant symptoms of allergic rhinitis
-Off ceftriaxone. Continue doxycycline for possible bronchitis. No infiltrates noted on imaging
-Will need full pulmonary function testing along with 6-minute walk test as outpatient once recovered from current episode. No parenchymal changes suggestive of amiodarone toxicity noted.
#2. Severe obstructive sleep apnea with morbid obesity
-Continue nightly CPAP therapy
-With his body habitus, he likely has a component of EDAC (expiratory dynamic airway collapse) contributing to his symptoms
-Component of restrictive pattern in addition to obstructive pattern on spirometry is likely related to morbid obesity, needs lung volumes and full pulmonary function testing as outpatient
-Counseled regarding weight loss and also briefly discussed GLP-1 agents
#3. Acute on chronic heart failure with reduced ejection fraction, EF 40 to 45%. Pro-BNP 2129
-Patient was quite volume loaded on exam, agree with IV Lasix per primary team
-Normal RV function on last ECHO in 2023. PAP could not be calculated for lack of TR
-Pedal edema continues to improve
#4. History of paroxysmal atrial fibrillation
-Continue anticoagulation with Eliquis. Also on Amiodarone
#5. h/o CAD, s/p PCI in 2019 (proximal LAD)
-on ASA, Eliquis, Statins, metoprolol
Pulmonary team will continue to follow
Patient will resume outpatient follow-up with Dr. John after discharge
Total time spent on this consultation/encounter _41___ minutes which includes review of history, physical exam, medications, laboratory data, personal review of imaging, extensive review of outpatient records, discussion with care team and
respiratory therapy.
Data:
Spirometry in office, 01/2025. FEV1 32%, FVC 38%, FEV1/FVC of 0.6. Suggestive of mixed obstructive and restrictive disease
ECHO 05/2024: Normal left ventricular chamber size. Mildly reduced left ventricular systolic
function. Left ventricular ejection fraction is 40-45% by Lobato's method.
The apex and distal septum are hypokinetic. Mild concentric left ventricular
hypertrophy. Stage I diastolic dysfunction suggestive of abnormal relaxation.
Normal right ventricular size. Normal right ventricular systolic function.
Mildly dilated left atrium.
No significant valvular disease.
When compared to prior study on 11/09/2022, there is no significant change
CT Chest 10/2024: No active cardiopulmonary disease
Atherosclerosis with coronary artery calcification
There is mild pleural thickening at the posterior aspect of both lung bases
The lungs are otherwise clear
Cardiac Cath 06/2020: 100% occluded Proximal LAD, s/p stenting
Subjective Data
-
Date of Service:
Date of Service: January 25, 2025
Subjective:
Patient reports gradually improving symptoms
Review of Systems
Genitourinary: Other (All 14 systems reviewed and negative except as stated above in the history of present illness.)
Objective Data
Data Reviewed
Vital Signs / I&O / Oxygen:
Vital Signs
Temp Pulse Resp BP Pulse Ox
97.7 F 59 20 153/67 90
01/25/25 07:55 01/25/25 08:10 01/25/25 07:55 01/25/25 08:10 01/25/25 07:55
Intake and Output
01/24/25 01/25/25 01/26/25
06:59 06:59 06:59
Intake Total 1080 / 1080 1160 / 1160 240 / 240
Output Total 1250 / 1250
Balance -170 / -170 1160 / 1160 240 / 240
SaO2 90
Physical Exam
General: Comfortable
HEENT: Normocephalic
Cardiovascular: S1-S2 and Peripheral Edema (Resolving pedal edema )
Respiratory: Wheeze (Improving)
GI: Soft and Non Distended
Neurology: Awake and Alert
Skin: Warm
Labs/Micro/Reports
Lab Data
01/25/25 06:45
01/25/25 06:45
[2025-01-25 11:46] VITALS: BP 149/66
--- NOTE | 2025-01-25 15:10 | W.PN.HOSP.TC ---
Today's Communication/Plan
-
Likely discharge tomorrow once seen by pulmonary
Assessment / Plan
Assessment / Plan
NAD
Scleral Anicteric
DMM
No JVD
Bibasilar crackles
RRR, S1/S2
Obese, soft, NT, BS+
Warm, Dry
Bilateral lower extremity peripheral pitting edema to self along with abdominal distention which she agrees with
AAOx3
Calm
Acute on chronic HFrEF with known LVEF of 40 to 45%
Continue diuretics
Follow I's and O's
Daily weight
Keep K greater than 4
Keep Mg greater than 2
Monitor on telemetry
Continue MRA, ARB, BB and diuretic
If blood pressure allows will initiate SGLT2 inhibitor if no history of UTI and if renal function will allow
Atrial fibrillation, Likely paroxysmal as currently in sinus rhythm
Continue amiodarone and Eliquis
Acute on chronic bronchitis
MDIs, steroids, pulmonary following, goal SpO2 greater than 80 to 92%
Will need outpatient pulmonary follow-up
Hypertension
Continue antihypertensive
LEODAN
CPAP at bedtime
Morbid obesity
Dietary and exercise modification
Outpatient bariatric surgery follow-up
May be considered for GLP-1
Anticipated Discharge: Within 24 hours
Subjective/Interval History
-
Date of Service: January 25, 2025
Seen and examined. No new complaints. No acute overnight events.
Objective Data
-
Labs:
Laboratory Results
01/25/25
06:45
WBC 11.6 H
Hgb 14.7
Hct 44.2
Plt Count 177
Sodium 139
Potassium 4.3
Chloride 96 L
Carbon Dioxide 31 H
BUN 53 H
Creatinine 1.5 H
Glucose 224 H
Calcium 9.5
Vital Signs:
Vital Signs
Temp Pulse Resp BP Pulse Ox
98 F 64 20 149/66 93
01/25/25 11:46 01/25/25 11:46 01/25/25 11:46 01/25/25 11:46 01/25/25 13:49
I&O
01/24/25 01/25/25 01/26/25
06:59 06:59 06:59
Intake Total 1080 / 1080 1160 / 1160 720 / 720
Output Total 1250 / 1250
Balance -170 / -170 1160 / 1160 720 / 720
[2025-01-25 15:17] VITALS: BP 145/79
--- NOTE | 2025-01-25 15:32 | CM ---
CM following re: discharge planning.
Reviewed pt's chart, met with pt.
Pt lives with SO Jodi in a 2[place], no steps to enter, has a daughter who is 33 year old and pr stated he did not hear from her for the past 32 years. Pt independent in all areas [employer], drives, works.
D/C plan: home with anticipated no needs. SO to transport.
CM will follow with discharge plan updates as hospitalization progresse
[2025-01-25] MEDS: SINGULAIR 10 MG PO (17:06)
[2025-01-25 19:25] VITALS: BP 145/68
[2025-01-25] MEDS: TESSALON PERLES 200 MG PO (19:55)
[2025-01-25 23:36] VITALS: BP 141/64
[2025-01-26 03:20] VITALS: BP 135/70
[2025-01-26 06:00] VITALS: BMI 44.3
[2025-01-26] MEDS: PULMICORT 0.5 MG INH (07:14)
[2025-01-26] MEDS: DUONEB 3 ML INH ×3 (07:14→15:06)
[2025-01-26 07:57] VITALS: BP 142/76
[2025-01-26 07:58] LABS: Hematocrit 44.9 % (39.0-52.0); Hemoglobin 15.1 g/dL (13.0-18.0); Mean Corp Hgb Conc. 33.6 g/dL (33.0-37.0); Mean Corpuscular Hgb 32.1 pg (27.0-31.0); Mean Corpuscular Volume 95.5 fL (80.0-94.0); Platelet Count 151 10^3/uL (130-400)
[2025-01-26 08:00] LABS: NT-proBNP 1140 pg/ml
[2025-01-26 08:08] LABS: Blood Urea Nitrogen 57 mg/dl (9-20); Calcium 9.1 mg/dl (8.4-10.2); Carbon Dioxide 26 mmol/L (22-30); Chloride 98 mmol/L (98-107); Estimated Creatinine Clearance 73 ml/min; Glucose 155 mg/dl (70-99); Potassium 3.9 mmol/L (3.5-5.1); Sodium 136 mmol/L (135-145); eGFR 54.75
[2025-01-26] MEDS: TOPROL XL 25 MG PO (08:58)
[2025-01-26] MEDS: ELIQUIS 5 MG PO (08:58)
[2025-01-26] MEDS: FARXIGA 10 MG PO (08:58)
[2025-01-26] MEDS: LIPITOR 80 MG PO (08:58)
[2025-01-26] MEDS: PACERONE 200 MG PO (08:59)
[2025-01-26] MEDS: DELTASONE 40 MG PO (08:59)
[2025-01-26] MEDS: ASPIR LOW (ENTERIC COATED) 81 MG PO (09:00)
[2025-01-26] MEDS: LASIX 40 MG IV ×2 (09:00→14:43)
[2025-01-26 11:35] VITALS: BP 174/83
[2025-01-26 12:09] VITALS: BP 126/59
--- NOTE | 2025-01-26 14:10 | W.PN.HOSP.TC ---
Today's Communication/Plan
-
Discharge home
Assessment / Plan
Assessment / Plan
NAD
Scleral Anicteric
DMM
No JVD
CTA bilateral
RRR, S1/S2
Obese, soft, NT, BS+
Warm, Dry
Lower extremity peripheral edema result
AAOx3
Calm
Acute on chronic HFrEF with known LVEF of 40 to 45%
Continue transition IV diuretics to p.o. diuretic
-For discharge diuretic will change from Tuesday to daily
-Outpatient cardiology follow-up
Follow I's and O's
Daily weight
Keep K greater than 4
Keep Mg greater than 2
Monitor on telemetry
Continue MRA, ARB, BB and diuretic
Continue SGLT2 inhibitor Tuesday discharge
Atrial fibrillation, Likely paroxysmal as currently in sinus rhythm
Continue amiodarone and Eliquis
Acute on chronic bronchitis
MDIs, steroids, pulmonary following, goal SpO2 greater than 80 to 92%
Will need outpatient pulmonary follow-up
Hypertension
Continue antihypertensive
LEODAN
CPAP at bedtime
Morbid obesity
Dietary and exercise modification
Outpatient bariatric surgery follow-up
May be considered for GLP-1
Discharge home once seen by pulmonary
Anticipated Discharge: Today
Subjective/Interval History
-
Date of Service: January 26, 2025
Seen and examined. No new complaints. No acute overnight events.
Sitting in bedside chair. Not requiring oxygen
Objective Data
-
Labs:
Laboratory Results
01/26/25 01/26/25
06:54 07:34
WBC Cancelled 10.0
Hgb Cancelled 15.1
Hct Cancelled 44.9
Plt Count Cancelled 151
Sodium 136
Potassium 3.9
Chloride 98
Carbon Dioxide 26
BUN 57 H
Creatinine 1.4 H
Glucose 155 H
Calcium 9.1
Vital Signs:
Vital Signs
Temp Pulse Resp BP Pulse Ox
97.4 F 62 22 126/59 95
01/26/25 11:35 01/26/25 11:35 01/26/25 11:35 01/26/25 12:09 01/26/25 11:35
I&O
01/25/25 01/26/25 01/27/25
06:59 06:59 06:59
Intake Total 1160 / 1160 1680 / 1680
Balance 1160 / 1160 1680 / 1680
--- NOTE | 2025-01-26 14:26 | W.DCSUMMARY ---
Addendum entered and electronically signed by Luis Dobson MD 01/26/25 15:33:
2 orders of Lasix were sent.
Should be on Lasix 80 mg daily
Discontinue Lasix 40 mg daily
Repeat BMP CBC with PCP in 1 week
Original Note:
Discharge Summary
Discharge Data
Date of Admission: 01/21/25
Date of Discharge: 01/26/25
-
Pending Results: No
Hospital Course
69 male history of CAD, chronic HFrEF, P A-fib, hypertension, hyperlipidemia, CKD stage II, LEODAN
Discharge Plan
-
Patient Disposition: Home (Routine Discharge)
Discharge Diagnosis/Procedures: Acute bronchitis with acute asthma exacerbation
Severe obstructive sleep apnea
Acute on chronic heart failure with moderately reduced EF
Condition: Good
Diet: Low Fat, Low Cholesterol, 2 Gram Sodium, No added salt and Restrict fluids to 48 oz
Activity: As tolerated
Activity Restrictions/Additional Instructions:
69 male history of CAD, chronic HFrEF, P A-fib, hypertension, hyperlipidemia, CKD stage II, LEODAN
Presented for shortness of breath. Concern for heart failure along with asthma exacerbation. Seen by pulmonary. Recommended to continue steroids, initially iv and then transitioned to prednisone. Was also concerned for heart failure treated with iv
diuretics with improvement. Was started on an SGLT2i. Will need outpatient cardiology follow up and pulmonary follow up.
Instructions: *PCP/Other [facility] Heart Failure Instructions
Referrals:
Surekha Linda DO [Active] - 02/21/25 (Has appt 02/21/25, keep)
Zuhair Cobb MD [Family Provider] -
Prescriptions:
New
prednisone 20 mg Tablet
40 mg PO DAILY Qty: 3 0RF
ipratropium-albuterol 0.5 mg-3 mg(2.5 mg base)/3 mL Solution For Nebulization
3 ml inhalation R QID Qty: 180 0RF
dapagliflozin propanediol 10 mg Tablet
10 mg PO DAILY Qty: 30 0RF
montelukast 10 mg Tablet
10 mg PO QPM Qty: 30 0RF
(DME) [facility] Neb Kit-Adult Misc
See Rx Instructions .Route Qty: 1 0RF
Rx Instructions:
As directed
Continued
losartan 25 MG tablet
25 mg PO DAILY
Eliquis 5 MG tablet
5 mg PO BID
atorvastatin 80 MG tablet
80 mg PO DAILY
metoprolol succinate 25 MG tablet extended release 24 hr
25 mg PO BID
furosemide 40 MG tablet
80 mg PO MOWEFR
amiodarone 200 mg Tablet
200 mg PO DAILY Qty: 0
acetaminophen [Tylenol] 325 mg Tablet
650 mg PO Q4HPRN PRN (Reason: mild pain)
aspirin 81 mg Tablet,Delayed Release (Dr/Ec)
81 mg PO DAILY
spironolactone 25 mg Tablet
12.5 mg PO DAILY
guaifenesin 100 mg/5 mL Liquid
200 mg PO Q4HPRN PRN (Reason: COUGH)
benzonatate 100 mg Capsule
200 mg PO TIDPRN PRN (Reason: cough) Qty: 30 0RF
Trelegy Ellipta 200-62.5-25 mcg Blister With Device
1 inh INHALATION R DAILY
levalbuterol tartrate [Xopenex HFA] 45 mcg/actuation Hfa Aerosol Inhaler
2 inh INHALATION R Q6HPRN PRN (Reason: SOB) Qty: 15 0RF
Changed
furosemide [Lasix] 40 mg Tablet
40 mg PO DAILY Qty: 30 0RF
Discontinued
ipratropium-albuterol 0.5 mg-3 mg(2.5 mg base)/3 mL solution for nebulization
3 ml inhalation R Q4HPRN PRN (Reason: wheezing)
doxycycline hyclate 100 mg Capsule
100 mg PO Q12 5 Days Qty: 10 0RF
prednisone 50 mg Tablet
50 mg PO DAILY
Discharge Orders:
Discharge Patient (As Directed); Ordered 01/26/25
Ordered By: Luis Dobson
Discharge Date and Time
Print Language: VIET[place]ESE
[2025-01-26] MEDS: SINGULAIR 10 MG PO (14:44)
--- NOTE | 2025-01-26 15:50 | PTCARENOTE ---
Addendum entered by Kaci Mcdonnell RN 01/26/25 16:17:
Patient left via wheelchair with staff escort. Vital signs stable. Patient without complaint.
Original Note:
Reviewed patient's discharge instructions with patient. Patient verbalizes understanding of all instructions. Tele and IV removed. Awaiting ride to arrive.
--- NOTE | 2025-01-26 16:28 | CM ---
Spoke with pt in room .
Reviewed IMM signed on chart.
Pt said his SO Sandy will drive him home.
Pt declined VN when offered.
Pt said he has a nebulizer but would like new one.
Offered [facility] with address to [facility] picker new one.
He will get his meds from another [facility] .
PLAN Home no needs
== END 2025-01-26 16:09 | disposition home or self-care (01) | DRG 291 ==
LOC: 4 EAST ACU 21:43
PROVIDERS: Student in an Organized Health Care Education/Training Program; ADMITTING PHYSICIAN Hospitalist; ATTENDING PHYSICIAN Hospitalist; EMERGENCY PHYSICIAN Student in an Organized Health Care Education/Training Program; FAMILY PHYSICIAN Family Medicine; OTHER PHYSICIAN Internal Medicine
PROC: 5A09357 Assistance with Respiratory Ventilation, Less than 24 Consecutive Hours, Continuous Positive Airway Pressure (ICD-10-PCS; 2025-01-22)
DX: I13.0 Hypertensive heart and chronic kidney disease with heart failure and stage 1 through stage 4 chronic kidney disease, or unspecified chronic kidney disease (principal); I50.23 Acute on chronic systolic (congestive) heart failure; J45.901 Unspecified asthma with (acute) exacerbation; Z68.42 Body mass index [BMI] 45.0-49.9, adult; N18.2 Chronic kidney disease, stage 2 (mild); I48.0 Paroxysmal atrial fibrillation; E66.01 Morbid (severe) obesity due to excess calories; E78.00 Pure hypercholesterolemia, unspecified; G47.33 Obstructive sleep apnea (adult) (pediatric); I25.10 Atherosclerotic heart disease of native coronary artery without angina pectoris; J20.9 Acute bronchitis, unspecified; J42 Unspecified chronic bronchitis; Z79.01 Long term (current) use of anticoagulants; Z96.642 Presence of left artificial hip joint; Z96.652 Presence of left artificial knee joint; Z79.82 Long term (current) use of aspirin; Z95.5 Presence of coronary angioplasty implant and graft; Z11.52 Encounter for screening for COVID-19
CPT/HCPCS: 71046; 80048; 80053; 83880; 84443; 84484; 85025; 85027; 87502; 87811; 93005; 94640; 94660; 96374; 99285

== ENCOUNTER → 2025-09-05 10:01 | Outpatient (REF) | payer OTHER, SELFPAY | LOC: REG 10:01 | PROVIDERS: ATTENDING PHYSICIAN Nurse Practitioner | DX: R05.3 Chronic cough (principal) | CPT/HCPCS: 71046 ==